=== PATIENT | female | born 1935 | race Caucasian/White ===

== ENCOUNTER 2017-08-25 14:02 | Inpatient (IN) | payer MEDICARE, OTHER ==
[~2017-08-25] VITALS: Ht 154.9 cm; Wt 59.9 kg
--- NOTE | 2017-08-25 14:06 | NUR ---
ASSISTED [facility] WHEELCHAIR TO ED BED 04, A/OX3, BB FAMILY FOR COUGH AND SOB X 3 DAYS. SPEAKS IN FULL SENTENCE. SPO2-97% RA. DENEIS CHEST PAIN. ALL NEEDS ARE ATTENDED, KEPT COMFORTABLE. PENDING ER MD EVALUATION
[2017-08-25] MEDS ORDERED: ASPIRIN 325 MG TABLET PO ONE (14:30)
[2017-08-25] MEDS ORDERED: ASPIRIN 325 MG TABLET ONE (14:31)
[2017-08-25 14:45] LABS: BASOPHILS % (AUTO) 0.6 % (0.0-2.0); EOSINOPHILS # (AUTO) 0.1 /CMM (0.0-0.7); EOSINOPHILS % (AUTO) 1.8 % (0.0-6.0); HEMATOCRIT 33 % (33-45); HEMOGLOBIN 11.5 g/dL (11.5-14.8); LYMPHOCYTES # (AUTO) 1.2 /CMM (0.8-4.8); LYMPHOCYTES % (AUTO) 22.3 % (20.0-44.0); MEAN CORPUSCULAR HEMOGLOBIN 30 PG (26.0-33.0); MEAN CORPUSCULAR HGB CONC 35 g/dl (31.0-36.0); MEAN CORPUSCULAR VOLUME 86 fL (82-100); MONOCYTES # (AUTO) 0.4 /CMM (0.1-1.30); NEUTROPHILS # (AUTO) 3.5 /CMM (1.8-8.9); NEUTROPHILS % (AUTO) 67.3 % (43.0-81.0); PLATELET COUNT (AUTO) 292 /CMM (150-450); RDW COEFFICIENT OF VARIATION 13.7 (11.5-15.0); RED BLOOD CELL COUNT(AUTO) 3.82 MIL/uL (4.0-5.2); WHITE BLOOD COUNT (AUTO) 5.2 K/uL (4.3-11.0)
[2017-08-25 14:56] LABS: CALCIUM, SERUM 9.2 mg/dL (8.5-10.1); CARBON DIOXIDE 28 mmol/L (21-32); CHLORIDE 107 mmol/L (98-107); CREATININE 1.1 mg/dL (0.6-1.3); GLUCOSE 117 mg/dL (74-106); SODIUM SERUM 141 mmol/L (136-145); UREA NITROGEN, BLOOD 28 mg/dL (7-18)
[2017-08-25 14:59] LABS: INR 1.01 (0.87-1.13); PROTHROMBIN TIME 10.5 SECS (9.5-12.7)
[2017-08-25 15:02] LABS: TROPONIN I < 0.017 ng/mL (0.00-0.056)
[2017-08-25 15:07] LABS: ALANINE AMINOTRANSFERASE 20 U/L (12-78); ALBUMIN 3.9 g/dL (3.4-5.0); ALKALINE PHOSPHATASE 32 U/L (46-116); ASPARTATE AMINOTRANSFERASE 24 U/L (15-37); B-TYPE NATRIURETIC PEPTIDE 530 PG/ML (0-125); BILIRUBIN,DIRECT 0.1 mg/dL (0.0-0.2); BILIRUBIN,TOTAL 0.4 mg/dL (0.2-1.0); TOTAL PROTEIN, SERUM 8.5 g/dL (6.4-8.2)
--- NOTE | 2017-08-25 15:43 | NUR ---
PAGED REMELTER DR MARINELLI
[2017-08-25] MEDS ORDERED: MAG HYDROX/AL HYDROX/SIMETH 30 ML UDC PO PRN (16:00)
[2017-08-25] MEDS ORDERED: HYDROCODONE/APAP 5/325MG 1 EACH TABLET PO PRN (16:00)
[2017-08-25] MEDS ORDERED: MAGNESIUM HYDROXIDE 30 ML UDC PO PRN (16:00)
[2017-08-25] MEDS ORDERED: ACETAMINOPHEN 325 MG TABLET PO PRN (16:00)
[2017-08-25] MEDS ORDERED: ZOLPIDEM TARTRATE 5 MG TABLET PO PRN (16:00)
[2017-08-25] MEDS ORDERED: ONDANSETRON HCL/PF 4 MG/2 ML VIAL IVP PRN (16:00)
[2017-08-25] MEDS ORDERED: Z GUARD REMEDY 2 OZ OINT TP PRN (16:00)
[2017-08-25] MEDS ORDERED: ENOXAPARIN SODIUM 40 MG/0.4 ML DISP.SYRIN SQ SCH (16:00)
[2017-08-25] MEDS ORDERED: FUROSEMIDE 40 MG/4 ML VIAL ONE (16:11)
--- NOTE | 2017-08-25 16:21 | NUR ---
GAVE REPORT TO JAY GREENE TELE ROOM [address] MARINELLI CHF DX
[2017-08-25] MEDS ORDERED: FUROSEMIDE 40 MG/4 ML VIAL IV ONE (16:30)
--- NOTE | 2017-08-25 16:30 | NUR ---
RN NOTES RECEIVED REPORT FROM BERNADETTE FROM EMERGENCY DEPT. PT. WILL BE GOING TO ROOM 311 BED 1.
[2017-08-25] MEDS ORDERED: INSU100V7 SQ (16:47)
[2017-08-25] MEDS ORDERED: ESOM40CA PO (16:47)
[2017-08-25] MEDS ORDERED: TICA90TA PO (16:47)
[2017-08-25] MEDS ORDERED: EZET10TA14 PO (16:47)
[2017-08-25] MEDS ORDERED: MONT10TA22 PO (16:47)
[2017-08-25] MEDS ORDERED: ALBU18HF2 INH (16:47)
[2017-08-25] MEDS ORDERED: METO-356 PO (16:47)
[2017-08-25] MEDS ORDERED: POTA8TAB3 PO (16:47)
[2017-08-25] MEDS ORDERED: FURO40TA5 PO (16:47)
[2017-08-25] MEDS ORDERED: AMLO10TA4 PO (16:47)
[2017-08-25] MEDS ORDERED: CELE200C PO (16:47)
[2017-08-25] MEDS ORDERED: ROSU5TAB PO (16:47)
[2017-08-25] MEDS ORDERED: GLIM4TAB2 PO (16:47)
[2017-08-25] MEDS ORDERED: SITA1TAB2 PO (16:47)
[2017-08-25] MEDS ORDERED: FENO145T PO (16:47)
[2017-08-25] MEDS ORDERED: MAGN400T6 PO (16:47)
[2017-08-25] MEDS ORDERED: ALEN70TA45 PO (16:47)
[2017-08-25 17:00] VITALS: BP 148/73
--- NOTE | 2017-08-25 17:00 | NUR ---
BODY DIE MAKER RECEIVED PT. IN BED A&OX4. IN MEDICALLY STABLE CONDITION. PT. IS BREATHING ON OXYGEN AT 2L/MIN VIA NASAL CANNULA. WITHOUT S/S OF RESPIRATORY DISTRESS. NO S/ OF ACUTE DISTRESS. FAMILY IS AT PT.'S BEDSIDE. PER CHARGE NURSE PT.'S DAUGHTER IS OKAY TO SPEND THE NIGHT.
[2017-08-25] MEDS: FUROSEMIDE 20 MG/2 ML VIAL IV SCH (18:18)
--- NOTE | 2017-08-25 19:45 | NUR ---
RN NOTE; RECEIVED PT IN BED AWAKE AND ALERT, W/ FAMILY AT THE BED SIDE. BREATHING EVENLY. NO SOB ON SUPPLEMENTAL O2 VIA NC. W/ INTERMITTENT COUGH. NO S/S OR C/O PAIN OR DISCOMFORT. NEEDS ATTENDED. BED LOW LOCKED. CALL LIGHT WITHIN REACH. WILL CONT TO MONITOR,
--- NOTE | 2017-08-25 19:53 | NUR ---
RN CLOSING NOTES PT. IN BED, A&OX4, SPEAKS IRAQI. PT.'S DAUGHTER IS AT BEDSIDE. BREATHING UNLABORED, AND EVENLY ON OXYGEN AT 2L/MIN VIA NASAL CANNULA. NO S/S OF ACUTE DISTRESS. PT. DENIES CHEST PAIN, AND SOB. IV IS INTACT AND PATENT ON LEFT ANTECUBITAL SITE. HEAD OF BED IS UP, BED IS IN LOWEST, AND LOCKED POSITION. 2 SIDE RAILS UP, AND INSTRUCTED PT. TO USE CALL LIGHT WITHIN REACH FOR ASSISTANCE. ALL NEEDS MET. WILL ENDORSE REPORT TO NURSE.
[2017-08-25 20:00] VITALS: BP_SYST 160; BP_SYST 161; BP_DIAS 80
[2017-08-25] MEDS ORDERED: CEFTRIAXONE 1 G in IV D5W 50 ML IV SCH (20:00)
[2017-08-25] MEDS ORDERED: AZITHROMYCIN 500 MG in IV D5W 250 ML IV SCH (21:00)
--- NOTE | 2017-08-25 23:00 | NUR ---
REQUESTED DR. AYALA ON THE FLOOR TO RECONCILE THE HOME MEDS.
[2017-08-26] VITALS: BP 100/53
[2017-08-26] MEDS ORDERED: DEXTROSE 50%-WATER 50 ML DISP.SYRIN IV PRN (00:30)
[2017-08-26] MEDS ORDERED: INSULIN DETEMIR 100 UNIT/ML CARTRIDGE SQ SCH (00:30)
[2017-08-26] MEDS ORDERED: ALBUTEROL SULFATE 8 GM HFA.AER.AD IH PRN (00:30)
[2017-08-26] MEDS ORDERED: INSULIN REGULAR, HUMAN 100 UNIT/ML 3 ML VIAL SQ PRN (00:30)
[2017-08-26] MEDS ORDERED: INSULIN DETEMIR 100 UNIT/ML CARTRIDGE SQ ONE (00:46)
[2017-08-26 04:00] VITALS: BP 130/59
--- NOTE | 2017-08-26 06:18 | NUR ---
RN NOTE; PT IN BED AWAKE AND ALERT W/ DTR AT THE BED SIDE. BREATHING EVENLY. DENIED SOB. NO C/O PAIN OR DISCOMFORT. NO ACUTE EVENT DURING THE NIGHT. NEEDS ATTENDED . BED LOW LOCKED . CALL LIGHT WITHIN REACH,. WILL CONT TO MONITOR AND WILL ENDORSE TO AM SHIFT FOR ROSALINA. Addendum: 08/26/17 at 0621 by KATHRINE PARKER RN SINUS RHYTHM ON TELE MONITOR,
[2017-08-26 06:51] LABS: BASOPHILS % (AUTO) 0.6 % (0.0-2.0); EOSINOPHILS # (AUTO) 0.1 /CMM (0.0-0.7); HEMATOCRIT 33 % (33-45); HEMOGLOBIN 11.1 g/dL (11.5-14.8); LYMPHOCYTES # (AUTO) 1.5 /CMM (0.8-4.8); LYMPHOCYTES % (AUTO) 29.6 % (20.0-44.0); MEAN CORPUSCULAR HEMOGLOBIN 30 PG (26.0-33.0); MEAN CORPUSCULAR HGB CONC 34 g/dl (31.0-36.0); MEAN CORPUSCULAR VOLUME 89 fL (82-100); MONOCYTES # (AUTO) 0.5 /CMM (0.1-1.30); MONOCYTES % (AUTO) 10.2 % (2.0-12.0); NEUTROPHILS # (AUTO) 2.9 /CMM (1.8-8.9); NEUTROPHILS % (AUTO) 57.6 % (43.0-81.0); PLATELET COUNT (AUTO) 245 /CMM (150-450); RDW COEFFICIENT OF VARIATION 14.7 (11.5-15.0); RED BLOOD CELL COUNT(AUTO) 3.72 MIL/uL (4.0-5.2); WHITE BLOOD COUNT (AUTO) 4.9 K/uL (4.3-11.0)
[2017-08-26] MEDS: BLOOD SUGAR DIAGNOSTIC 1 EACH STRIP IN SCH ×2 (06:54→12:04)
[2017-08-26 07:01] LABS: ALANINE AMINOTRANSFERASE 21 U/L (12-78); ALBUMIN 3.8 g/dL (3.4-5.0); ALKALINE PHOSPHATASE 28 U/L (46-116); ASPARTATE AMINOTRANSFERASE 20 U/L (15-37); BILIRUBIN,TOTAL 0.3 mg/dL (0.2-1.0); CALCIUM, SERUM 9.3 mg/dL (8.5-10.1); CARBON DIOXIDE 30 mmol/L (21-32); CHLORIDE 106 mmol/L (98-107); CREATININE 1.5 mg/dL (0.6-1.3); GLUCOSE 134 mg/dL (74-106); PHOSPHORUS 4.6 mg/dL (2.5-4.9); POTASSIUM 4.3 mmol/L (3.5-5.1); SODIUM SERUM 144 mmol/L (136-145); TOTAL PROTEIN, SERUM 8.3 g/dL (6.4-8.2); UREA NITROGEN, BLOOD 35 mg/dL (7-18)
[2017-08-26 07:35] LABS: CHOLESTEROL 147 mg/dL (<200); HDL CHOLESTEROL 30 mg/dL (40-60); LDL 69 mg/dL (0-99); TRIGLYCERIDES 311 mg/dL (30-150)
[2017-08-26 08:00] VITALS: BP 110/56
--- NOTE | 2017-08-26 08:00 | NUR ---
CREW LEAD NOTES PATIENT IN BED RESTING NO SOB OR ACUTE DISTRESS NOTED. PATIENT ALERT, ORIENTED X3 KOSOVAN SPEAKING. DAUGHTER AT BEDSIDE. PERIPHERAL IV INTACT PATENT. BED IN LOW LOCKED POSITION. CALL LIGHT WITHIN REACH WILL CONTINUE TO MONITOR.
[2017-08-26] MEDS: FUROSEMIDE 20 MG/2 ML VIAL IV SCH (08:56)
[2017-08-26] MEDS ORDERED: FENOFIBRATE NANOCRYS (145 MG) 145 MG TABLET PO SCH (09:00)
[2017-08-26] MEDS ORDERED: GLIMEPIRIDE 4 MG TABLET PO SCH (09:00)
[2017-08-26] MEDS ORDERED: ALBUTEROL FS 2.5 MG/3 ML VIAL.NEB NEB PRN (09:00)
[2017-08-26] MEDS ORDERED: METFORMIN 500 MG TABLET PO SCH (09:00)
[2017-08-26] MEDS ORDERED: METOPROLOL SUCCINATE 25 MG TAB.SR.24H PO SCH (09:00)
[2017-08-26] MEDS ORDERED: LINAGLIPTIN 5 MG TABLET PO SCH (09:00)
--- NOTE | 2017-08-26 10:00 | NUR ---
CLINICAL GENETICIST NOTES PATIENT SEEN AND EVALUATED BY DR. MARINELLI ORDERS NOTED AND CARRIED OUT.
[2017-08-26 12:00] VITALS: BP 95/60
--- NOTE | 2017-08-26 15:00 | NUR ---
WALLCOVERING TEXTURER NOTES CALL PLACED TO DR. MARINELLI STATING PATIENT IS REQUESTING TO BE DISCHARGED. CT RESULTS RELAYED TO DR. MARINELLI. ORDERS RECEIVED TO D/C HOME.
--- NOTE | 2017-08-26 15:50 | NUR ---
ROLLED GLASS CROSSCUTTER NOTES PATIENT DISCHARGED HOME WITH DAUGHTER. DISCHARGE INSTRUCTIONS PROVIDED TO DAUGHTER. DAUGHTER STATES WILL MAKE APPOINTMENT WITH PCP AND CARDIOLOGY ON 08/27/2017. MD AWARE OF ALL ABNORMAL LABS. PATIENT ALERT, ORIENTED X3. ALL BELONGINGS ACCOUNTED FOR, BELONGING LIST SIGNED. PRESCRIPTION PROVIDED TO DAUGHTER. VERBALIZED UNDERSTANDING. PATIENT ESCORTED TO CAR .
[2017-08-26] MEDS ORDERED: TICAGRELOR 90 MG TABLET PO SCH (17:00)
[2017-08-26] MEDS ORDERED: EZETIMIBE 10 MG TABLET PO SCH (22:00)
[2017-08-26] MEDS ORDERED: ATORVASTATIN 10 MG TABLET PO SCH (22:00)
[2017-08-26] MEDS ORDERED: MONTELUKAST SODIUM (10MG) 10 MG TABLET PO SCH (22:00)
== END 2017-08-26 15:50 | disposition home or self-care (01) | DRG 291 ==
LOC: ER 14:03 → TELE 16:55
PROVIDERS: ADMIT Internal Medicine; ATTEND Internal Medicine
DX: I11.0 Hypertensive heart disease with heart failure (principal); J96.01 Acute respiratory failure with hypoxia; J18.9 Pneumonia, unspecified organism; N17.9 Acute kidney failure, unspecified; E11.9 Type 2 diabetes mellitus without complications; I48.91 Unspecified atrial fibrillation; I50.33 Acute on chronic diastolic (congestive) heart failure; J45.909 Unspecified asthma, uncomplicated; Z95.5 Presence of coronary angioplasty implant and graft; I25.10 Atherosclerotic heart disease of native coronary artery without angina pectoris; Z79.899 Other long term (current) drug therapy; Z79.84 Long term (current) use of oral hypoglycemic drugs; E78.5 Hyperlipidemia, unspecified; Z88.1 Allergy status to other antibiotic agents; Z79.4 Long term (current) use of insulin; R91.1 Solitary pulmonary nodule
CPT/HCPCS: 36415; 71010-TC; 71250-TC; 80048-TC; 80053-TC; 80061-TC; 80076-TC; 82962-TC; 83735-TC; 83880; 84100-TC; 84484-TC; 85025-TC; 85730-TC; 87081-TC; A4606; J0456; J0696; J1650; J1815; J1940; J7050; J7060; Z7610

== ENCOUNTER 2018-01-21 11:55 | Inpatient (IN) | payer MEDICARE, OTHER ==
[~2018-01-21] VITALS: Ht 162.6 cm; Wt 61.2 kg
[~2018-01-21 11:55] MED LIST: ALBU18HF2 INH; ALEN70TA45 PO; AMLO10TA4 PO; CELE200C PO; ESOM40CA PO; EZET10TA14 PO; FENO145T PO; FURO40TA5 PO; GLIM4TAB2 PO; INSU100V7 SQ; MAGN400T6 PO; METO-356 PO; MONT10TA22 PO; POTA8TAB3 PO; ROSU5TAB PO; SITA1TAB2 PO; TICA90TA PO
[2018-01-21 12:25] LABS: BASOPHILS % (AUTO) 0.5 % (0.0-2.0); EOSINOPHILS % (AUTO) 0.6 % (0.0-6.0); HEMATOCRIT 28 % (33-45); HEMOGLOBIN 9.3 g/dL (11.5-14.8); LYMPHOCYTES # (AUTO) 0.8 /CMM (0.8-4.8); LYMPHOCYTES % (AUTO) 11.7 % (20.0-44.0); MEAN CORPUSCULAR HGB CONC 34 g/dl (31.0-36.0); MEAN CORPUSCULAR VOLUME 86 fL (82-100); MONOCYTES # (AUTO) 0.4 /CMM (0.1-1.30); MONOCYTES % (AUTO) 6.5 % (2.0-12.0); NEUTROPHILS # (AUTO) 5.7 /CMM (1.8-8.9); NEUTROPHILS % (AUTO) 80.7 % (43.0-81.0); PLATELET COUNT (AUTO) 208 /CMM (150-450); RDW COEFFICIENT OF VARIATION 16.6 (11.5-15.0); RED BLOOD CELL COUNT(AUTO) 3.21 MIL/uL (4.0-5.2); WHITE BLOOD COUNT (AUTO) 6.9 K/uL (4.3-11.0)
[2018-01-21 12:35] LABS: CALCIUM, SERUM 8.8 mg/dL (8.5-10.1); CARBON DIOXIDE 28 mmol/L (21-32); CHLORIDE 105 mmol/L (98-107); GLUCOSE 132 mg/dL (74-106); POTASSIUM 5.1 mmol/L (3.5-5.1); SODIUM SERUM 138 mmol/L (136-145); UREA NITROGEN, BLOOD 22 mg/dL (7-18)
[2018-01-21 12:39] LABS: INR 1.12 (0.85-1.15)
[2018-01-21 12:43] LABS: TROPONIN I < 0.017 ng/mL (0.00-0.056)
[2018-01-21 12:47] LABS: ALANINE AMINOTRANSFERASE 16 U/L (12-78); ALBUMIN 3.3 g/dL (3.4-5.0); ALKALINE PHOSPHATASE 32 U/L (46-116); ASPARTATE AMINOTRANSFERASE 13 U/L (15-37); B-TYPE NATRIURETIC PEPTIDE 3000 PG/ML (0-125); BILIRUBIN,DIRECT 0.2 mg/dL (0.0-0.2); BILIRUBIN,TOTAL 0.7 mg/dL (0.2-1.0); TOTAL PROTEIN, SERUM 7.9 g/dL (6.4-8.2)
[2018-01-21] MEDS ORDERED: FUROSEMIDE 40 MG/4 ML VIAL IV ONE (13:00)
--- NOTE | 2018-01-21 13:00 | NUR ---
PT MEDICATED ORDERED.
[2018-01-21] MEDS ORDERED: FUROSEMIDE 40 MG/4 ML VIAL ONE (13:03)
--- NOTE | 2018-01-21 13:11 | NUR ---
CALLED [employer] PRODUCTION MINER WAS PAGED.
--- NOTE | 2018-01-21 13:39 | NUR ---
REPORT GIVEN TO SHYLA GREENE FOR AGUSTIN 117.
[2018-01-21] MEDS ORDERED: DILT60CA2 PO (14:17)
[2018-01-21] MEDS ORDERED: CARV6.252 PO (14:17)
[2018-01-21] MEDS ORDERED: INSU100I24 SQ (14:17)
[2018-01-21] MEDS ORDERED: ASPI-1152 PO (14:17)
[2018-01-21] MEDS ORDERED: TEMA15CA5 PO (14:17)
[2018-01-21] MEDS ORDERED: FERR325T23 PO (14:17)
[2018-01-21] MEDS ORDERED: APIX2.5T PO (14:17)
[2018-01-21] MEDS ORDERED: HYDROCODONE/APAP 5/325MG 1 EACH TABLET PO PRN (15:00)
[2018-01-21] MEDS ORDERED: ACETAMINOPHEN 325 MG TABLET PO PRN (15:00)
[2018-01-21] MEDS ORDERED: ALBUTEROL SULFATE 8 GM HFA.AER.AD IH PRN (15:00)
[2018-01-21] MEDS ORDERED: MAG HYDROX/AL HYDROX/SIMETH 30 ML UDC PO PRN (15:00)
[2018-01-21] MEDS ORDERED: ZOLPIDEM TARTRATE 5 MG TABLET PO PRN (15:00)
[2018-01-21] MEDS ORDERED: ONDANSETRON HCL/PF 4 MG/2 ML VIAL IVP PRN (15:00)
[2018-01-21] MEDS ORDERED: MORPHINE SULFATE INJ 2 MG/ML DISP.SYRIN IV PRN (15:00)
[2018-01-21] MEDS ORDERED: ENOXAPARIN SODIUM 40 MG/0.4 ML DISP.SYRIN SQ SCH (15:00)
[2018-01-21] MEDS ORDERED: Z GUARD REMEDY 2 OZ OINT TP PRN (15:00)
[2018-01-21 15:39] VITALS: BP 144/65
--- NOTE | 2018-01-21 15:53 | NUR ---
AGUSTIN RN NOTE ON TELE MONITOR AFIB [address] LI STATED OK TO GIVE CARDIZEM 10 MG IVP TIME AND GIVE ADDITION 60 MG PO IF HR STILL ABOVE 120 IN 30 MIN, ORDER CARRIED OUT
--- NOTE | 2018-01-21 15:56 | NUR ---
AGUSTIN RN NOTE RECEIVED PATIENT FROM ER ,ALERT ORIENTED X3 ,YI SPEAKING, PLACED ON TELE AFIB [address] NAGY WITH DX CHF AND AFIB WITH RVR ,FAMILY AT BEDSIDE ,ALL NEEDS ATTENDED, ECHO DOING NOW , VS TAKEN , HOSPITAL ORIENTATION DONE , WILL CONT TO MONITOR CLOSELY STILL SON , ON 3L NC SAT 97%
[2018-01-21] MEDS ORDERED: DILTIAZEM HCL 50 MG IV IV STA (15:59)
[2018-01-21 16:00] VITALS: BP 151/55
[2018-01-21] MEDS ORDERED: DILTIAZEM HCL 30 MG TABLET PO ONE (16:00)
--- NOTE | 2018-01-21 16:00 | NUR ---
AGUSTIN RN NOTE RECEIVED CALL FROM PHARMACY STATED ITS SHORTAGE OF CARDIZEM , STATED THAT WILL CALL TO DR VÁSQUEZ TO CHANGE ORDER WILL AWAIT FOR FURTHER ORDERS
--- NOTE | 2018-01-21 16:25 | NUR ---
AGUSTIN RN NOTE CARDIZEM 60 MG PO GIVEN ORDERED WILL CONT TO MONITOR CLOSELY
[2018-01-21] MEDS: FERROUS SULFATE (325 MG) 325 MG/TAB TABLET PO SCH (17:21)
[2018-01-21] MEDS: CARVEDILOL 6.25 MG TABLET PO SCH (17:23)
[2018-01-21] MEDS: APIXABAN 2.5 MG TABLET PO SCH (17:47)
[2018-01-21] MEDS ORDERED: DIGOXIN INJ 0.5 MG/2 ML AMPUL IV ONE (18:00)
[2018-01-21] MEDS ORDERED: METOPROLOL TARTRATE INJ 5 MG/5 ML AMPUL IVP PRN (18:00)
--- NOTE | 2018-01-21 18:00 | NUR ---
AGUSTIN RN NOTE NOTIFY TO DR NAGY THAT HR AFIB 120 STILL SOB ORDERED DIGOXIN I V , ORDER CARRIED OUT
--- NOTE | 2018-01-21 18:00 | NUR ---
AGUSTIN RN NOTE CALLED AGAIN TO DR NAGY NOTIFIED THAT PATIENT STILL SOB AND HR 138 A FIB AFTER CARDIZEM 60 MG PO AND COREG 6.25 PO AWARE THAT CARDIZEM IV 10 MG WAS D\C BY PHARMACIST DUE TO SHORTAGE
[2018-01-21] MEDS ORDERED: DEXTROSE 50%-WATER 50 ML DISP.SYRIN IV PRN (18:30)
[2018-01-21] MEDS: BLOOD SUGAR DIAGNOSTIC 1 EACH STRIP VI SCH ×2 (18:42→21:21)
--- NOTE | 2018-01-21 18:45 | NUR ---
AGUSTIN GREENE NOTE DIG IV 0.25 MG IVP GIVEN ORDERED BP 95/45 HR 112M,WILL CONT TO MONITOR CLOSELY Addendum: 01/21/18 at 1850 by SHYLA CHATTERJEE RN PER RT INCREASED O2 UP TO 6L NC DUE TO PATIENT HAVE SOB
[2018-01-21] MEDS ORDERED: ALBUTEROL FS 2.5 MG/0.5 ML VIAL.NEB NEB PRN (19:30)
--- NOTE | 2018-01-21 19:30 | NUR ---
AGUSTIN/RN NOTES: RECEIVED PT. IN BED W/ HOB ELEVATED W/ O2 @ 5 LPM VIA N/C SAT 99%. PT. IS PALESTINIAN SPEAKING ONLY. PT. A/O X 3. ON TELE MONITOR W/ AFIB 116. CONTINENT OF B/B. USES BSC. LAC G 20 PATENT AND INTACT W/ NO S/S OF INFECTION/INFILTRATION NOTED. W/ FAMILY MEMBERS AT BEDSIDE TO TRANSLATE. CALL LIGHT W/ REACH. WILL CONTINUE TO MONITOR.
[2018-01-21 20:00] VITALS: BP 116/55
[2018-01-21] MEDS: DILTIAZEM SR 60 MG PO SCH (21:00)
[2018-01-21] MEDS: INSULIN REGULAR, HUMAN 100 UNIT/ML 3 ML VIAL SQ PRN (21:24)
[2018-01-21] MEDS: TEMAZEPAM 15 MG CAPSULE PO SCH (21:27)
[2018-01-22] VITALS (8 sets, daily range): BP systolic 97–110; BP diastolic 46–62
[2018-01-22] MEDS: ALBUTEROL FS 2.5 MG/0.5 ML VIAL.NEB NEB SCH ×4 (01:06→19:46)
[2018-01-22] MEDS: DILTIAZEM SR 60 MG PO SCH (05:00)
[2018-01-22 06:31] LABS: BASOPHILS % (AUTO) 0.5 % (0.0-2.0); EOSINOPHILS % (AUTO) 0.3 % (0.0-6.0); HEMATOCRIT 26 % (33-45); HEMOGLOBIN 8.6 g/dL (11.5-14.8); LYMPHOCYTES # (AUTO) 1.1 /CMM (0.8-4.8); LYMPHOCYTES % (AUTO) 19.5 % (20.0-44.0); MEAN CORPUSCULAR HGB CONC 33 g/dl (31.0-36.0); MEAN CORPUSCULAR VOLUME 86 fL (82-100); MONOCYTES # (AUTO) 0.4 /CMM (0.1-1.30); MONOCYTES % (AUTO) 7.4 % (2.0-12.0); NEUTROPHILS # (AUTO) 4.1 /CMM (1.8-8.9); NEUTROPHILS % (AUTO) 72.3 % (43.0-81.0); PLATELET COUNT (AUTO) 170 /CMM (150-450); RDW COEFFICIENT OF VARIATION 17.6 (11.5-15.0); RED BLOOD CELL COUNT(AUTO) 3.01 MIL/uL (4.0-5.2); WHITE BLOOD COUNT (AUTO) 5.6 K/uL (4.3-11.0)
[2018-01-22 06:39] LABS: CALCIUM, SERUM 8.8 mg/dL (8.5-10.1); CARBON DIOXIDE 30 mmol/L (21-32); CHLORIDE 106 mmol/L (98-107); GLUCOSE 58 mg/dL (74-106); MAGNESIUM 2.2 mg/dL (1.8-2.4); PHOSPHORUS 5.2 mg/dL (2.5-4.9); POTASSIUM 4.6 mmol/L (3.5-5.1); SODIUM SERUM 142 mmol/L (136-145); UREA NITROGEN, BLOOD 23 mg/dL (7-18)
[2018-01-22 06:57] LABS: CHOLESTEROL 93 mg/dL (<200); HDL CHOLESTEROL 37 mg/dL (40-60); LDL 46 mg/dL (0-99); TRIGLYCERIDES 84 mg/dL (30-150)
--- NOTE | 2018-01-22 07:13 | NUR ---
AGUSTIN/RN NOTES: NO ACUTE CHANGES NOTED DURING THIS SHIFT. REPORT GIVEN TO AM NURSE FOR ROSALINA.
[2018-01-22] MEDS: BLOOD SUGAR DIAGNOSTIC 1 EACH STRIP VI SCH ×4 (07:39→21:42)
[2018-01-22] MEDS: FUROSEMIDE 40 MG/4 ML VIAL IV SCH (08:21)
[2018-01-22] MEDS: ASPIRIN EC 81 MG TABLET.DR PO SCH (08:21)
[2018-01-22] MEDS: MONTELUKAST SODIUM (10MG) 10 MG TABLET PO SCH (08:21)
[2018-01-22] MEDS: APIXABAN 2.5 MG TABLET PO SCH ×2 (08:21→17:40)
[2018-01-22] MEDS: FERROUS SULFATE (325 MG) 325 MG/TAB TABLET PO SCH ×2 (08:21→17:39)
[2018-01-22] MEDS: EZETIMIBE 10 MG TABLET PO SCH (08:21)
[2018-01-22] MEDS: CARVEDILOL 6.25 MG TABLET PO SCH ×2 (08:23→17:40)
[2018-01-22] MEDS: INSULIN REGULAR, HUMAN 100 UNIT/ML 3 ML VIAL SQ PRN ×2 (08:25→17:39)
[2018-01-22] MEDS ORDERED: AMLODIPINE BESYLATE 10 MG TABLET PO SCH (09:00)
[2018-01-22 09:54] LABS: IRON, SERUM 22 ug/dl (50-175); TOTAL IRON BINDING CAPACITY 230 ug/dl (250-450)
[2018-01-22 10:10] LABS: FERRITIN 194 ng/mL (8-388); THYROID STIMULATING HORMONE 1.441 uIU/mL (0.358-3.74)
[2018-01-22 10:28] LABS: TROPONIN I < 0.017 ng/mL (0.00-0.056)
[2018-01-22] MEDS: MAGNESIUM HYDROXIDE 30 ML UDC PO PRN (11:44)
[2018-01-22] MEDS: DIGOXIN INJ 0.5 MG/2 ML AMPUL IV SCH ×2 (11:51→17:40)
[2018-01-22] MEDS: SOD FERRIC GLUC 125 MG in IV NS 0.9% 100 ML IV SCH (15:32)
--- NOTE | 2018-01-22 19:30 | NUR ---
TELE/RN NOTES: RECEIVED PT. IN BED W/ HOB ELEVATED W/ O2 @ 5 LPM VIA N/C SAT 99%. PT. IS SPANISH SPEAKING ONLY. PT. A/O X 3. ON TELE MONITOR W/ AFIB 116. CONTINENT OF B/B. USES BSC. LAC G 20 PATENT AND INTACT W/ NO S/S OF INFECTION/INFILTRATION NOTED. W/ FAMILY MEMBERS AT BEDSIDE TO TRANSLATE. CALL LIGHT W/ REACH. WILL CONTINUE TO MONITOR
[2018-01-22] MEDS: TEMAZEPAM 15 MG CAPSULE PO SCH (21:42)
[2018-01-23] VITALS: BP_SYST 97; BP_DIAS 41; BP_DIAS 51
[2018-01-23] MEDS: DIGOXIN INJ 0.5 MG/2 ML AMPUL IV SCH (00:25)
[2018-01-23] MEDS: ALBUTEROL FS 2.5 MG/0.5 ML VIAL.NEB NEB SCH ×4 (02:24→20:08)
[2018-01-23 04:00] VITALS: BP 125/44
[2018-01-23 06:10] LABS: BASOPHILS % (AUTO) 0.7 % (0.0-2.0); EOSINOPHILS % (AUTO) 1.1 % (0.0-6.0); HEMATOCRIT 26 % (33-45); HEMOGLOBIN 8.5 g/dL (11.5-14.8); LYMPHOCYTES # (AUTO) 1.2 /CMM (0.8-4.8); LYMPHOCYTES % (AUTO) 24.4 % (20.0-44.0); MEAN CORPUSCULAR HGB CONC 33 g/dl (31.0-36.0); MEAN CORPUSCULAR VOLUME 86 fL (82-100); MONOCYTES # (AUTO) 0.4 /CMM (0.1-1.30); MONOCYTES % (AUTO) 7.7 % (2.0-12.0); NEUTROPHILS # (AUTO) 3.2 /CMM (1.8-8.9); NEUTROPHILS % (AUTO) 66.1 % (43.0-81.0); PLATELET COUNT (AUTO) 161 /CMM (150-450); RDW COEFFICIENT OF VARIATION 17.5 (11.5-15.0); RED BLOOD CELL COUNT(AUTO) 2.97 MIL/uL (4.0-5.2); WHITE BLOOD COUNT (AUTO) 4.8 K/uL (4.3-11.0)
[2018-01-23 06:49] LABS: TROPONIN I < 0.017 ng/mL (0.00-0.056)
[2018-01-23 06:52] LABS: ALANINE AMINOTRANSFERASE 20 U/L (12-78); ALBUMIN 2.8 g/dL (3.4-5.0); ALKALINE PHOSPHATASE 33 U/L (46-116); ASPARTATE AMINOTRANSFERASE 11 U/L (15-37); BILIRUBIN,TOTAL 0.5 mg/dL (0.2-1.0); CALCIUM, SERUM 8.7 mg/dL (8.5-10.1); CARBON DIOXIDE 30 mmol/L (21-32); CHLORIDE 106 mmol/L (98-107); CREATININE 0.9 mg/dL (0.6-1.3); GLUCOSE 81 mg/dL (74-106); MAGNESIUM 2.2 mg/dL (1.8-2.4); PHOSPHORUS 4.2 mg/dL (2.5-4.9); POTASSIUM 4.6 mmol/L (3.5-5.1); SODIUM SERUM 142 mmol/L (136-145); TOTAL PROTEIN, SERUM 6.9 g/dL (6.4-8.2); UREA NITROGEN, BLOOD 20 mg/dL (7-18)
--- NOTE | 2018-01-23 07:26 | NUR ---
TELE/RN NOTES: NO ACUTE CHANGES NOTED DURING THIS SHIFT. REPORT GIVEN TO AM NURSE FOR ROSALINA.
[2018-01-23 08:00] VITALS: BP 106/58
[2018-01-23] MEDS: BLOOD SUGAR DIAGNOSTIC 1 EACH STRIP VI SCH ×4 (08:01→22:44)
[2018-01-23] MEDS: MONTELUKAST SODIUM (10MG) 10 MG TABLET PO SCH (08:04)
[2018-01-23] MEDS: EZETIMIBE 10 MG TABLET PO SCH (08:04)
[2018-01-23] MEDS: APIXABAN 2.5 MG TABLET PO SCH ×2 (08:04→17:20)
[2018-01-23] MEDS: ASPIRIN EC 81 MG TABLET.DR PO SCH (08:04)
[2018-01-23] MEDS: FERROUS SULFATE (325 MG) 325 MG/TAB TABLET PO SCH ×2 (08:04→17:20)
[2018-01-23] MEDS: FUROSEMIDE 40 MG/4 ML VIAL IV SCH ×3 (08:05→17:00)
[2018-01-23] MEDS ORDERED: PIPERACILLIN /TAZOBACTAM 3.375 G in IV D5W 100 ML IV SCH (08:30)
--- NOTE | 2018-01-23 09:00 | NUR ---
RN NOTE LASIX 40 MG IV FREQUENCY ADJUSTED, MORNING DOSE 40 MG GIVEN TO PT PRIOR ADJUSTMENT, THUS NEW DOSE WAS HELD NOT TO DOUBLE DOSE, AND WILL ADMINISTER NEXT SCHEDULE DOSE.
[2018-01-23 09:08] LABS: ABG BASE EXCESS 4.2 mmol/L; ABG OXYGEN SATURATION 96.1 % (92.0-98.5); ABG PCO2 49.5 mmHg (35.0-45.0); ABG PH 7.397 (7.350-7.450); ABG PO2 92.8 mmHg (75.0-100.0); AaDO2 135.5 mmHg; COHb 0.3 % (0.5-1.5); MetHb 0.8 % (0.0-1.5); SITE, ABG Right Radial; VENT MODE, BG Nasal Cannula
[2018-01-23] MEDS: PIPERACILLIN /TAZOBACTAM 2.25 G in IV D5W 50 ML IV SCH ×2 (09:56→17:21)
[2018-01-23] MEDS: CARVEDILOL 6.25 MG TABLET PO SCH ×2 (09:59→17:00)
[2018-01-23 12:00] VITALS: BP 117/46
[2018-01-23 14:31] LABS: APPEARANCE,URINE SL CLOUDY (CLEAR); BILIRUBIN,URINE NEGATIVE (NEGATIVE); BLOOD, URINE NEGATIVE Ery/uL (NEGATIVE); COLOR,URINE YELLOW (YELLOW); KETONES,URINE NEGATIVE (NEGATIVE); LEUKOCYTE ESTERASE ,URINE NEGATIVE (NEGATIVE); NITRITE, URINE NEGATIVE (NEGATIVE); PROTEIN,URINE NEGATIVE (NEGATIVE); UGLUCOSE NEGATIVE (NEGATIVE); UROBILINOGEN,URINE 0.2 EU/dL (0.2)
[2018-01-23] MEDS: SOD FERRIC GLUC 125 MG in IV NS 0.9% 100 ML IV SCH (14:37)
[2018-01-23 16:00] VITALS: BP 96/52
[2018-01-23] MEDS: INSULIN REGULAR, HUMAN 100 UNIT/ML 3 ML VIAL SQ PRN (17:41)
[2018-01-23 20:00] VITALS: BP_SYST 144; BP_SYST 98; BP_DIAS 40; BP_DIAS 66
--- NOTE | 2018-01-23 20:00 | NUR ---
RN MS INITIAL NOTES: RECEIVED PT. IN BED W/ HOB ELEVATED W/ O2 @ 5 LPM VIA N/C SAT 99%. PT. IS LAO SPEAKING ONLY. PT. A/O X 3. CONTINENT OF B/B. USES BSC. LAC G 20 PATENT AND INTACT W/ NO S/S OF INFECTION/INFILTRATION NOTED. W/ FAMILY MEMBERS AT BEDSIDE TO TRANSLATE. CALL LIGHT W/ REACH. WILL CONTINUE TO MONITOR
[2018-01-23] MEDS: TEMAZEPAM 15 MG CAPSULE PO SCH (21:45)
[2018-01-24] VITALS: BP 101/50
[2018-01-24] MEDS: PIPERACILLIN /TAZOBACTAM 2.25 G in IV D5W 50 ML IV SCH ×5 (00:26→23:21)
[2018-01-24] MEDS: ALBUTEROL FS 2.5 MG/0.5 ML VIAL.NEB NEB SCH ×2 (01:48→07:35)
[2018-01-24 04:00] VITALS: BP 108/58
[2018-01-24 06:02] LABS: BASOPHILS % (AUTO) 0.7 % (0.0-2.0); EOSINOPHILS % (AUTO) 1.5 % (0.0-6.0); HEMATOCRIT 26 % (33-45); HEMOGLOBIN 8.6 g/dL (11.5-14.8); LYMPHOCYTES % (AUTO) 24.3 % (20.0-44.0); MEAN CORPUSCULAR HGB CONC 33 g/dl (31.0-36.0); MEAN CORPUSCULAR VOLUME 85 fL (82-100); MONOCYTES # (AUTO) 0.3 /CMM (0.1-1.30); MONOCYTES % (AUTO) 8.5 % (2.0-12.0); NEUTROPHILS # (AUTO) 2.7 /CMM (1.8-8.9); PLATELET COUNT (AUTO) 180 /CMM (150-450); RDW COEFFICIENT OF VARIATION 16.8 (11.5-15.0); RED BLOOD CELL COUNT(AUTO) 3.02 MIL/uL (4.0-5.2); WHITE BLOOD COUNT (AUTO) 4.1 K/uL (4.3-11.0)
--- NOTE | 2018-01-24 06:05 | NUR ---
RN MS CLOSING NOTES: ENDORSED PT. IN BED W/ HOB ELEVATED W/ O2 @ 5 LPM VIA N/C SAT 99%. PT. IS DANISH SPEAKING ONLY. PT. A/O X 3. CONTINENT OF B/B. USES BSC. LAC G 20 PATENT AND INTACT W/ NO S/S OF INFECTION/INFILTRATION NOTED. W/ FAMILY MEMBERS AT BEDSIDE TO TRANSLATE. CALL LIGHT W/ REACH. WILL CONTINUE TO MONITOR
[2018-01-24 06:19] LABS: CALCIUM, SERUM 9.2 mg/dL (8.5-10.1); CARBON DIOXIDE 35 mmol/L (21-32); CHLORIDE 104 mmol/L (98-107); CREATININE 1.1 mg/dL (0.6-1.3); GLUCOSE 95 mg/dL (74-106); MAGNESIUM 2.2 mg/dL (1.8-2.4); PHOSPHORUS 4.4 mg/dL (2.5-4.9); POTASSIUM 4.9 mmol/L (3.5-5.1); SODIUM SERUM 142 mmol/L (136-145); UREA NITROGEN, BLOOD 16 mg/dL (7-18)
--- NOTE | 2018-01-24 07:30 | NUR ---
INDEPENDENT PRODUCER INITIAL NOTES RECEIVED PATIENT IN BED, AOX3, ON NC 5L SATURATING 98% O2, BRITISH SPEAKING, FAMILY MEMBER AT BEDSIDE AIDING IN TRANSLATION, ABLE TO AMBULATE WITH WALKER, IV R FA 20G, CLEAN AND PATENT, BED IN LOW AND LOCKED POSITION, CALL LIGHT WITHIN REACH, WILL CONTINUE TO MONITOR.
[2018-01-24 08:00] VITALS: BP 104/47
[2018-01-24] MEDS: BLOOD SUGAR DIAGNOSTIC 1 EACH STRIP VI SCH ×4 (08:02→22:52)
[2018-01-24] MEDS: EZETIMIBE 10 MG TABLET PO SCH (08:55)
[2018-01-24] MEDS: CARVEDILOL 6.25 MG TABLET PO SCH ×2 (08:56→17:00)
[2018-01-24] MEDS: APIXABAN 2.5 MG TABLET PO SCH ×2 (08:56→17:20)
[2018-01-24] MEDS: MONTELUKAST SODIUM (10MG) 10 MG TABLET PO SCH (08:56)
--- NOTE | 2018-01-24 09:00 | NUR ---
PALLIATIVE NURSE NOTES PATIENT BP 104/47, OK TO GIVE BP MEDICATION PER DR ESTEBAN.
[2018-01-24] MEDS: MAGNESIUM HYDROXIDE 30 ML UDC PO PRN (10:20)
[2018-01-24] MEDS: INSULIN REGULAR, HUMAN 100 UNIT/ML 3 ML VIAL SQ PRN ×2 (11:45→17:43)
[2018-01-24 12:00] VITALS: BP 112/57
[2018-01-24] MEDS ORDERED: methylPREDNISolone SOD SUCC 125 MG/2ML VIAL IV ONE (13:00)
[2018-01-24] MEDS: ALBUTEROL HALF STRENGTH 1.25 MG/3 ML VIAL.NEB NEB SCH ×2 (14:14→20:05)
[2018-01-24] MEDS: ACETYLCYSTEINE 10% SOLN 400 MG/4 ML VIAL NEB SCH ×2 (14:14→15:30)
[2018-01-24] MEDS: SOD FERRIC GLUC 125 MG in IV NS 0.9% 100 ML IV SCH (14:58)
[2018-01-24 16:00] VITALS: BP 97/44
--- NOTE | 2018-01-24 18:28 | NUR ---
BLANKET MAKER END NOTES PATIENT RESTING IN BED, NO SIGNS OF DISTRESS, FAMILY AT BEDSIDE, ALL NEEDS ATTENDED TO, WILL ENDORSE TO BUSINESS ETHICS PROFESSOR FOR CONTINUITY OF CARE.
[2018-01-24 20:00] VITALS: BP 116/64
[2018-01-24] MEDS: *INSULIN REGULAR(HUMULIN R)HUM 100 UNIT/ML VIAL SQ PRN (22:58)
[2018-01-25] VITALS: BP 116/64
[2018-01-25] MEDS: ACETYLCYSTEINE 10% SOLN 400 MG/4 ML VIAL NEB SCH ×3 (00:34→14:41)
[2018-01-25] MEDS: ALBUTEROL HALF STRENGTH 1.25 MG/3 ML VIAL.NEB NEB SCH ×4 (00:35→20:12)
[2018-01-25] MEDS: PIPERACILLIN /TAZOBACTAM 2.25 G in IV D5W 50 ML IV SCH ×4 (05:33→23:00)
[2018-01-25 06:46] LABS: BASOPHILS % (AUTO) 0.1 % (0.0-2.0); HEMATOCRIT 26 % (33-45); HEMOGLOBIN 8.5 g/dL (11.5-14.8); LYMPHOCYTES # (AUTO) 0.6 /CMM (0.8-4.8); LYMPHOCYTES % (AUTO) 13.1 % (20.0-44.0); MEAN CORPUSCULAR HGB CONC 33 g/dl (31.0-36.0); MEAN CORPUSCULAR VOLUME 86 fL (82-100); MONOCYTES # (AUTO) 0.3 /CMM (0.1-1.30); MONOCYTES % (AUTO) 6.4 % (2.0-12.0); NEUTROPHILS # (AUTO) 3.9 /CMM (1.8-8.9); NEUTROPHILS % (AUTO) 80.4 % (43.0-81.0); PLATELET COUNT (AUTO) 169 /CMM (150-450); RDW COEFFICIENT OF VARIATION 17.7 (11.5-15.0); RED BLOOD CELL COUNT(AUTO) 2.99 MIL/uL (4.0-5.2); WHITE BLOOD COUNT (AUTO) 4.9 K/uL (4.3-11.0)
[2018-01-25 07:10] LABS: CALCIUM, SERUM 9.3 mg/dL (8.5-10.1); CARBON DIOXIDE 34 mmol/L (21-32); CHLORIDE 104 mmol/L (98-107); CREATININE 1.1 mg/dL (0.6-1.3); GLUCOSE 165 mg/dL (74-106); MAGNESIUM 2.5 mg/dL (1.8-2.4); PHOSPHORUS 3.5 mg/dL (2.5-4.9); POTASSIUM 5.7 mmol/L (3.5-5.1); SODIUM SERUM 142 mmol/L (136-145); UREA NITROGEN, BLOOD 20 mg/dL (7-18)
[2018-01-25] MEDS: BLOOD SUGAR DIAGNOSTIC 1 EACH STRIP VI SCH ×4 (07:48→21:22)
[2018-01-25] MEDS: *INSULIN REGULAR(HUMULIN R)HUM 100 UNIT/ML VIAL SQ PRN ×2 (07:52→21:24)
--- NOTE | 2018-01-25 07:53 | NUR ---
RN NOTES RECEIVED PT FROM RAILROAD CONDUCTOR A&0X3, PRIMARILY GAMBIAN SPEAKING. ON 3L NC SATING WELL NO SOB OR DISTRESS NOTED. RFA 20G IV SITE INTACT. FAMILY AT BEDSIDE. BED LOCKED AND IN LOWEST POSITION, CALL LIGHT WITHIN REACH, SIDE RAILS UPX3,WILL CONT TO MON.
[2018-01-25 08:00] VITALS: BP 102/60
[2018-01-25] MEDS: EZETIMIBE 10 MG TABLET PO SCH (08:11)
[2018-01-25] MEDS: APIXABAN 2.5 MG TABLET PO SCH ×2 (08:11→16:19)
[2018-01-25] MEDS: MONTELUKAST SODIUM (10MG) 10 MG TABLET PO SCH (08:12)
[2018-01-25] MEDS: CARVEDILOL 6.25 MG TABLET PO SCH ×3 (08:12→16:19)
[2018-01-25] MEDS: INSULIN REGULAR, HUMAN 100 UNIT/ML 3 ML VIAL SQ PRN (11:56)
[2018-01-25] MEDS: SOD FERRIC GLUC 125 MG in IV NS 0.9% 100 ML IV SCH (14:22)
[2018-01-25 16:00] VITALS: BP 105/41
[2018-01-25] MEDS ORDERED: INSULIN GLARGINE, 100 UNIT/ML CARTRIDGE SQ ONE (16:00)
[2018-01-25] MEDS: predniSONE 20 MG TABLET PO SCH (16:19)
--- NOTE | 2018-01-25 18:42 | NUR ---
RN NOTES PT REMAINED IN STABLE CONDITION, ALL NEEDS MET, NO SIGNIFICANT CHANGES NOTED. PT RESTING IN BED WITH FAMILY AT BEDSIDE. WILL ENDORSE TO ONCOMING SHIFT.
--- NOTE | 2018-01-25 19:47 | NUR ---
RN INITIAL NOTES: RECEIVED REPORT FROM DAY RN, PT IN BED, AWAKE, A/O X3 ON 3L VIA NC RESPIRATION EVEN AND UNLABORED, DAUGHTER AT BED SIDE, PT IS SWEDISH SPEAKING ONLY, DAUGHTER HELPED WITH TRANSLATION. IV ACCESS PATENT AND FLUSHING WELL, ON HL. PT USES WALKER TO AMBULATE AND ALSO CAN AMBULATE WITH ASSISTANCE. SAFETY PRECAUTIONS FOR FALL INITIATED, CALL LIGHT IN REACH. WILL CONTINUE TO MONITOR PT.
[2018-01-25 20:00] VITALS: BP 108/40
--- NOTE | 2018-01-25 21:24 | NUR ---
BS 241: BS 241, 4UNITS OF INSULIN GIVEN PER SLIDING SCALE, PT TOLERATING PO INTAKE WELL, DAUGHTER AT BED SIDE TO TRANSLATE. DISCUSSED ABOUT PLAN OF CARE.
--- NOTE | 2018-01-25 23:02 | NUR ---
PRN TYLENOL: PT REQUESTED FOR TYLENOL FOR HEAD ACHE, ALSO STATED DO NOT GIVE HER MOTHER ANY NORCO OR AMBIEN, ONLY TYLENOL TO HELP WITH SLEEPING TOO. PRN TYLENOL 650MG TAB PO ADMINISTERED TO THE PT AT THIS TIME
[2018-01-26] VITALS: BP 104/58
[2018-01-26] MEDS: ACETYLCYSTEINE 10% SOLN 400 MG/4 ML VIAL NEB SCH ×4 (00:39→23:30)
[2018-01-26] MEDS: ALBUTEROL HALF STRENGTH 1.25 MG/3 ML VIAL.NEB NEB SCH ×4 (01:15→19:31)
[2018-01-26 04:00] VITALS: BP 131/62
[2018-01-26] MEDS: PIPERACILLIN /TAZOBACTAM 2.25 G in IV D5W 50 ML IV SCH ×4 (05:38→23:28)
[2018-01-26] MEDS: BLOOD SUGAR DIAGNOSTIC 1 EACH STRIP VI SCH ×4 (05:56→21:03)
[2018-01-26] MEDS: INSULIN REGULAR, HUMAN 100 UNIT/ML 3 ML VIAL SQ PRN ×3 (05:57→16:47)
--- NOTE | 2018-01-26 05:57 | NUR ---
bs 187: bs 187, 3units of insulin given per sliding scale, pt tolerating po intake.
[2018-01-26 06:10] LABS: BASOPHILS % (AUTO) 0.2 % (0.0-2.0); HEMATOCRIT 27 % (33-45); HEMOGLOBIN 8.9 g/dL (11.5-14.8); LYMPHOCYTES # (AUTO) 0.5 /CMM (0.8-4.8); LYMPHOCYTES % (AUTO) 11.4 % (20.0-44.0); MEAN CORPUSCULAR HGB CONC 33 g/dl (31.0-36.0); MEAN CORPUSCULAR VOLUME 86 fL (82-100); MONOCYTES # (AUTO) 0.1 /CMM (0.1-1.30); MONOCYTES % (AUTO) 2.1 % (2.0-12.0); NEUTROPHILS # (AUTO) 3.9 /CMM (1.8-8.9); NEUTROPHILS % (AUTO) 86.3 % (43.0-81.0); PLATELET COUNT (AUTO) 192 /CMM (150-450); RDW COEFFICIENT OF VARIATION 17.5 (11.5-15.0); RED BLOOD CELL COUNT(AUTO) 3.13 MIL/uL (4.0-5.2); WHITE BLOOD COUNT (AUTO) 4.5 K/uL (4.3-11.0)
[2018-01-26 06:30] LABS: CALCIUM, SERUM 9.2 mg/dL (8.5-10.1); CARBON DIOXIDE 32 mmol/L (21-32); CHLORIDE 104 mmol/L (98-107); GLUCOSE 204 mg/dL (74-106); MAGNESIUM 2.2 mg/dL (1.8-2.4); PHOSPHORUS 3.6 mg/dL (2.5-4.9); POTASSIUM 5.8 mmol/L (3.5-5.1); SODIUM SERUM 140 mmol/L (136-145); UREA NITROGEN, BLOOD 23 mg/dL (7-18)
--- NOTE | 2018-01-26 06:47 | NUR ---
RN CLOSING NOTES: PT IN BED, AWAKE, REMAINS ON 3L O2 VIA NC, RESPIRATION EVENA ND UNLABORED, DAUGHTER AT BED SIDE, PT DENIES ANY PAIN OR DISCOMFORT AT THIS TIME. IV ACCESS REMAINS PATENT AND FLUSHING WELL, ON HL. VS REMAINS STABLE, NEEDS ATTENDED. SAFETY PRECAUTIONS FOR FALL REMAINS ENGAGED, CALL LIGHT IN REACH, WILL ENDORSE TO DAY RN FOR ROSALINA.
--- NOTE | 2018-01-26 07:10 | NUR ---
ms rn initial notes Received patient in bed, awake, head of bed elevated, no SOB or distress noted. On 02 @3lpm via NC and tolerated well. Alert and oriented x 3 verbally responsive and able to make needs known, Irish speaking. IV intact and patent HL only. No complaint of pain or discomfort noted. Call light with in patient reach, will continue to monitor accordingly.
[2018-01-26 08:00] VITALS: BP 109/58
[2018-01-26] MEDS: EZETIMIBE 10 MG TABLET PO SCH (08:31)
[2018-01-26] MEDS: predniSONE 20 MG TABLET PO SCH (08:31)
[2018-01-26] MEDS: MONTELUKAST SODIUM (10MG) 10 MG TABLET PO SCH (08:31)
[2018-01-26] MEDS: CARVEDILOL 6.25 MG TABLET PO SCH ×2 (08:32→16:49)
[2018-01-26] MEDS: APIXABAN 2.5 MG TABLET PO SCH ×2 (09:02→16:48)
[2018-01-26] MEDS: FUROSEMIDE 40 MG/4 ML VIAL IV SCH ×3 (10:49→18:30)
[2018-01-26] MEDS: SOD FERRIC GLUC 125 MG in IV NS 0.9% 100 ML IV SCH (13:46)
[2018-01-26 16:00] VITALS: BP 132/63
--- NOTE | 2018-01-26 18:37 | NUR ---
ms rn notes last dose of Lasix 3/3 held due to bp 100/43. will continue to monitor
--- NOTE | 2018-01-26 19:18 | NUR ---
ms rn closing notes All needs provided, attended, and anticipated. Patient is in stable condition. endorsed to next shift RN to continue care. Call light with in patient reach.
[2018-01-26 20:00] VITALS: BP 122/54
[2018-01-26] MEDS: *INSULIN REGULAR(HUMULIN R)HUM 100 UNIT/ML VIAL SQ PRN (21:02)
[2018-01-27] MEDS: ALBUTEROL HALF STRENGTH 1.25 MG/3 ML VIAL.NEB NEB SCH ×3 (01:21→13:30)
[2018-01-27 04:00] VITALS: BP 120/54
[2018-01-27] MEDS: PIPERACILLIN /TAZOBACTAM 2.25 G in IV D5W 50 ML IV SCH ×2 (06:19→11:42)
[2018-01-27 06:59] LABS: BASOPHILS % (AUTO) 0.3 % (0.0-2.0); EOSINOPHILS % (AUTO) 0.1 % (0.0-6.0); HEMATOCRIT 27 % (33-45); LYMPHOCYTES # (AUTO) 1.4 /CMM (0.8-4.8); LYMPHOCYTES % (AUTO) 25.9 % (20.0-44.0); MEAN CORPUSCULAR HGB CONC 34 g/dl (31.0-36.0); MEAN CORPUSCULAR VOLUME 86 fL (82-100); MONOCYTES # (AUTO) 0.4 /CMM (0.1-1.30); MONOCYTES % (AUTO) 7.2 % (2.0-12.0); NEUTROPHILS # (AUTO) 3.6 /CMM (1.8-8.9); NEUTROPHILS % (AUTO) 66.5 % (43.0-81.0); PLATELET COUNT (AUTO) 191 /CMM (150-450); RDW COEFFICIENT OF VARIATION 17.3 (11.5-15.0); RED BLOOD CELL COUNT(AUTO) 3.11 MIL/uL (4.0-5.2); WHITE BLOOD COUNT (AUTO) 5.4 K/uL (4.3-11.0)
--- NOTE | 2018-01-27 07:10 | NUR ---
MS RN OPENING NOTES RECEIVED PT IN BED ALERT AND VERBALLY RESPONSIVE, PT'S DAUGHTER AT BEDSIDE, NO C/O PAIN , ON 3LPM O2 VIA NC, TOLERATING WELL, WITH LFA SALINE LOCK, INTACT AND PATENT, BED IN LOW AND LOCKED POSITION, CALL LIGHT WITHIN REACH, SAFETY PRECAUTION OBSERVED, WILL CONTINUE TO MONITOR.
[2018-01-27 07:13] LABS: ALANINE AMINOTRANSFERASE 58 U/L (12-78); ALBUMIN 3.2 g/dL (3.4-5.0); ALKALINE PHOSPHATASE 35 U/L (46-116); ASPARTATE AMINOTRANSFERASE 46 U/L (15-37); BILIRUBIN,TOTAL 0.3 mg/dL (0.2-1.0); CALCIUM, SERUM 9.3 mg/dL (8.5-10.1); CARBON DIOXIDE 37 mmol/L (21-32); CHLORIDE 104 mmol/L (98-107); GLUCOSE 98 mg/dL (74-106); MAGNESIUM 2.2 mg/dL (1.8-2.4); PHOSPHORUS 2.9 mg/dL (2.5-4.9); POTASSIUM 4.2 mmol/L (3.5-5.1); SODIUM SERUM 143 mmol/L (136-145); TOTAL PROTEIN, SERUM 7.3 g/dL (6.4-8.2); UREA NITROGEN, BLOOD 29 mg/dL (7-18)
[2018-01-27 08:00] VITALS: BP 125/56
[2018-01-27] MEDS: BLOOD SUGAR DIAGNOSTIC 1 EACH STRIP VI SCH ×2 (08:01→11:38)
[2018-01-27] MEDS: ACETYLCYSTEINE 10% SOLN 400 MG/4 ML VIAL NEB SCH ×2 (08:04→14:09)
[2018-01-27] MEDS: predniSONE 20 MG TABLET PO SCH (09:02)
[2018-01-27] MEDS: EZETIMIBE 10 MG TABLET PO SCH (09:02)
[2018-01-27] MEDS: MONTELUKAST SODIUM (10MG) 10 MG TABLET PO SCH (09:02)
[2018-01-27 09:03] VITALS: BP 125/56
[2018-01-27] MEDS: CARVEDILOL 6.25 MG TABLET PO SCH (09:03)
[2018-01-27] MEDS: APIXABAN 2.5 MG TABLET PO SCH (09:15)
[2018-01-27] MEDS: *INSULIN REGULAR(HUMULIN R)HUM 100 UNIT/ML VIAL SQ PRN (11:44)
[2018-01-27 13:24] LABS: OCCULT BLOOD STOOL NEGATIVE (NEGATIVE)
--- NOTE | 2018-01-27 14:09 | NUR ---
RT HHN TX NOT GIVEN. MULTIPLE FAMILY MEMBERS IN ROOM AWAITING DISCHARGE PAPERWORK TO BE PROCESSED. PATIENT DID NOT WANT TX
--- NOTE | 2018-01-27 15:30 | NUR ---
MS AGRONOMY INSTRUCTOR NOTES PT DISCHARGE IN STABLE CONDITION, NO ACUTE DISTRESS NOTED, NO C/O PAIN, DISCHARGE INSTRUCTIONS GIVEN/EXPLAINED TO PT AND DAUGHTER, BOTH VERBALIZED UNDERSTANDING, VS WERE TAKEN FOLLOWS: BP: 121/55; CT: 85, RR: 20; TEMP.:97.8; O2 SAT OF 96% RA; D/C IV, INTACT AND NO SIGNS OF INFECTION/BLEEDING, PRESSURE DRESSING APPLIED. D/C TO HOME VIA W/C ACCOMPANIED BY FAMILY MEMBER
== END 2018-01-27 15:35 | disposition home or self-care (01) | DRG 291 ==
LOC: ER 11:57 → TELE-TD 14:01 → TELE1 01-22 09:59 → MEDSG1 01-23 12:02
PROVIDERS: ADMIT Internal Medicine; ATTEND Internal Medicine
DX: I13.0 Hypertensive heart and chronic kidney disease with heart failure and stage 1 through stage 4 chronic kidney disease, or unspecified chronic kidney disease (principal); J96.01 Acute respiratory failure with hypoxia; N17.0 Acute kidney failure with tubular necrosis; J18.9 Pneumonia, unspecified organism; E11.22 Type 2 diabetes mellitus with diabetic chronic kidney disease; E44.1 Mild protein-calorie malnutrition; I48.91 Unspecified atrial fibrillation; I48.92 Unspecified atrial flutter; D63.8 Anemia in other chronic diseases classified elsewhere; I50.23 Acute on chronic systolic (congestive) heart failure; I11.0 Hypertensive heart disease with heart failure; J45.909 Unspecified asthma, uncomplicated; M19.90 Unspecified osteoarthritis, unspecified site; H26.9 Unspecified cataract; Z88.1 Allergy status to other antibiotic agents; Z79.4 Long term (current) use of insulin; Z79.84 Long term (current) use of oral hypoglycemic drugs; Z79.899 Other long term (current) drug therapy; Z98.890 Other specified postprocedural states; Z98.61 Coronary angioplasty status; N18.9 Chronic kidney disease, unspecified; I25.10 Atherosclerotic heart disease of native coronary artery without angina pectoris; K21.9 Gastro-esophageal reflux disease without esophagitis; I08.0 Rheumatic disorders of both mitral and aortic valves; E78.5 Hyperlipidemia, unspecified; E61.1 Iron deficiency; J20.9 Acute bronchitis, unspecified
CPT/HCPCS: 36415; 36600; 71045-TC; 71250-TC; 80048-TC; 80053-TC; 80061-TC; 80076-TC; 81000-TC; 82272-TC; 82306; 82533; 82728-TC; 82962-TC; 83540-TC; 83735-TC; 83880; 84100-TC; 84439-TC; 84443-TC; 84484-TC; 85025-TC; 85730-TC; 87081-TC; 93307-TC; 93970-TC; 94799-TC; A4606; J1160; J1815; J1940; J2405; J2543; J2916; J2930; J3490; J7030; J7050; J7060; Z7610

== ENCOUNTER 2019-02-20 02:17 | Inpatient (IN) | payer MEDICARE, OTHER ==
[~2019-02-20] VITALS: Ht 157.5 cm; Wt 55.3 kg
[~2019-02-20 02:17] MED LIST changes: -ALEN70TA45 PO; +APIX2.5T PO; +ASPI-1152 PO; +CARV6.252 PO; -CELE200C PO; +DILT60CA2 PO; -ESOM40CA PO; -FENO145T PO; +FERR325T23 PO; +INSU100I24 SQ; -INSU100V7 SQ; -MAGN400T6 PO; -METO-356 PO; -ROSU5TAB PO; -SITA1TAB2 PO; +TEMA15CA5 PO; -TICA90TA PO
--- NOTE | 2019-02-20 02:27 | NUR ---
TO BED 1 BIB FAMILY MEMBERS C/O SOB WITH WEEZING, RHONCHI HEARD BILATERALLY ON AUSCULTATION, CP X4 DAYS. PT AAOX4, PLACE PT ON CARDIAC MONITORING, CONTINUOUS POX NOTED O2 SAT 92% ON RA, PLACE PT ON 02@2L/NC O2 SAT INCREASED TO 97%. PENDING ER MD SONG.
--- NOTE | 2019-02-20 02:34 | NUR ---
ER MD AT BEDSIDE TO EVAL PT WITH ORDERS RECEIVED.
[2019-02-20] MEDS ORDERED: IPRATROPIUM NEB FS 0.5 MG/2.5 ML AMPUL.NEB ONE (02:44)
[2019-02-20] MEDS ORDERED: ALBUTEROL FS 2.5 MG/3 ML VIAL.NEB ONE (02:44)
[2019-02-20 03:00] LABS: BASOPHILS # (AUTO) 0.1 /CMM (0.0-0.2); EOSINOPHILS % (AUTO) 2.5 % (0.0-6.0); HEMATOCRIT 38 % (33-45); HEMOGLOBIN 13.1 g/dL (11.5-14.8); LYMPHOCYTES # (AUTO) 1.1 /CMM (0.8-4.8); LYMPHOCYTES % (AUTO) 14.3 % (20.0-44.0); MEAN CORPUSCULAR HGB CONC 34 g/dl (31.0-36.0); MEAN CORPUSCULAR VOLUME 85 fL (82-100); MONOCYTES # (AUTO) 0.7 /CMM (0.1-1.30); MONOCYTES % (AUTO) 8.9 % (2.0-12.0); NEUTROPHILS # (AUTO) 5.7 /CMM (1.8-8.9); NEUTROPHILS % (AUTO) 73.3 % (43.0-81.0); PLATELET COUNT (AUTO) 196 /CMM (150-450); RED BLOOD CELL COUNT(AUTO) 4.54 MIL/uL (4.0-5.2); WHITE BLOOD COUNT (AUTO) 7.8 K/uL (4.3-11.0)
[2019-02-20] MEDS ORDERED: IPRATROPIUM NEB FS 0.5 MG/2.5 ML AMPUL.NEB NEB ONE (03:00)
[2019-02-20] MEDS ORDERED: methylPREDNISolone SOD SUCC 125 MG/2ML VIAL IV ONE (03:00)
[2019-02-20] MEDS ORDERED: ALBUTEROL FS 2.5 MG/3 ML VIAL.NEB CONTNEB ONE (03:00)
[2019-02-20 03:08] LABS: CARBON DIOXIDE 31 mmol/L (21-32); CHLORIDE 101 mmol/L (98-107); CREATININE 0.9 mg/dL (0.6-1.3); GLUCOSE 159 mg/dL (74-106); SODIUM SERUM 139 mmol/L (136-145); UREA NITROGEN, BLOOD 17 mg/dL (7-18)
[2019-02-20] MEDS ORDERED: methylPREDNISolone SOD SUCC 125 MG/2ML VIAL ONE (03:19)
[2019-02-20] MEDS ORDERED: Magnesium 1GM/D5W 100ML PREMIX 200 ML IV ONE (03:20)
[2019-02-20 03:21] LABS: ALANINE AMINOTRANSFERASE 21 U/L (12-78); ALBUMIN 3.7 g/dL (3.4-5.0); ALKALINE PHOSPHATASE 69 U/L (46-116); ASPARTATE AMINOTRANSFERASE 18 U/L (15-37); B-TYPE NATRIURETIC PEPTIDE 1393 PG/ML (0-125); BILIRUBIN,DIRECT 0.1 mg/dL (0.0-0.2); BILIRUBIN,TOTAL 0.4 mg/dL (0.2-1.0); TOTAL PROTEIN, SERUM 8.3 g/dL (6.4-8.2)
--- NOTE | 2019-02-20 03:56 | NUR ---
PT AMBULATROY TO THE BATHROOM WITH STEADY GAIT NOTED. PT FAMILY MEMBERS REMAINS AT BEDSIDE. WILL CALL FOR REPORT.
[2019-02-20] MEDS: Magnesium 1GM/D5W 100ML PREMIX 100 ML IV SCH ×2 (03:57→05:37)
[2019-02-20] MEDS ORDERED: FUROSEMIDE 20 MG/2 ML VIAL IV ONE (04:00)
[2019-02-20] MEDS ORDERED: ZOLPIDEM TARTRATE 5 MG TABLET PO PRN (04:00)
[2019-02-20] MEDS ORDERED: Z GUARD REMEDY 2 OZ OINT TP PRN (04:00)
[2019-02-20] MEDS ORDERED: HYDROCODONE/APAP 5/325MG 1 EACH TABLET PO PRN (04:00)
[2019-02-20] MEDS ORDERED: DEXTROSE 50%-WATER 50 ML DISP.SYRIN IV PRN (04:00)
[2019-02-20] MEDS ORDERED: MAGNESIUM HYDROXIDE 30 ML UDC PO PRN (04:00)
[2019-02-20] MEDS ORDERED: ACETAMINOPHEN 325 MG TABLET PO PRN (04:00)
[2019-02-20] MEDS ORDERED: ALBUTEROL FS 2.5 MG/0.5 ML VIAL.NEB NEB PRN (04:00)
[2019-02-20] MEDS ORDERED: ONDANSETRON HCL/PF 4 MG/2 ML VIAL IVP PRN (04:00)
[2019-02-20] MEDS ORDERED: IPRATROPIUM NEB FS 0.5 MG/2.5 ML AMPUL.NEB NEB PRN (04:00)
--- NOTE | 2019-02-20 04:10 | NUR ---
ER SPOKE TO JUAN CARLOS LOTT REGARDING PT ADMISSION.
[2019-02-20] MEDS ORDERED: ALBUTEROL FS 2.5 MG/0.5 ML VIAL.NEB NEB ONE (05:00)
[2019-02-20 05:01] LABS: BASOPHILS % (AUTO) 0.6 % (0.0-2.0); EOSINOPHILS % (AUTO) 1.4 % (0.0-6.0); HEMATOCRIT 38 % (33-45); HEMOGLOBIN 12.8 g/dL (11.5-14.8); LYMPHOCYTES # (AUTO) 0.8 /CMM (0.8-4.8); LYMPHOCYTES % (AUTO) 11.2 % (20.0-44.0); MEAN CORPUSCULAR HGB CONC 34 g/dl (31.0-36.0); MEAN CORPUSCULAR VOLUME 86 fL (82-100); MONOCYTES # (AUTO) 0.2 /CMM (0.1-1.30); MONOCYTES % (AUTO) 3.1 % (2.0-12.0); NEUTROPHILS # (AUTO) 5.8 /CMM (1.8-8.9); NEUTROPHILS % (AUTO) 83.7 % (43.0-81.0); PLATELET COUNT (AUTO) 187 /CMM (150-450); RED BLOOD CELL COUNT(AUTO) 4.36 MIL/uL (4.0-5.2); WHITE BLOOD COUNT (AUTO) 6.9 K/uL (4.3-11.0)
--- NOTE | 2019-02-20 05:01 | NUR ---
REPORT CALLED TO TELE 1 TRISHA PULLIAM. WILL TRASNPORT PT VIA ACLS PROTOCOL.
[2019-02-20 05:23] LABS: CALCIUM, SERUM 8.8 mg/dL (8.5-10.1); CARBON DIOXIDE 32 mmol/L (21-32); CHLORIDE 100 mmol/L (98-107); CREATININE 0.9 mg/dL (0.6-1.3); GLUCOSE 225 mg/dL (74-106); MAGNESIUM 2.9 mg/dL (1.8-2.4); PHOSPHORUS 3.7 mg/dL (2.5-4.9); POTASSIUM 4.1 mmol/L (3.5-5.1); SODIUM SERUM 138 mmol/L (136-145); UREA NITROGEN, BLOOD 17 mg/dL (7-18)
[2019-02-20 05:33] LABS: CHOLESTEROL 117 mg/dL (<200); HDL CHOLESTEROL 32 mg/dL (40-60); LDL 60 mg/dL (0-99); TRIGLYCERIDES 165 mg/dL (30-150)
[2019-02-20 05:37] VITALS: BP 174/56
--- NOTE | 2019-02-20 05:58 | NUR ---
TELE-TD/RISK CONTROL MANAGER JUAN CARLOS ELI PAGED REGARDING ELEVATED BP 174/56. AWAITING CALL BACK.
[2019-02-20] MEDS ORDERED: hydrALAZINE HCL IV 20 MG VIAL IV PRN (07:00)
--- NOTE | 2019-02-20 07:31 | NUR ---
RN AGUSTIN/TELE OPENING NOTES RECEIVED BEDSIDE REPORT. FAMILY AT BEDSIDE PATIENT A/O X4 IRISH SPEAKING NO SIGNS OR SYMPTOMS OF RESPIRATORY DISTRESS SATURATING WELL ON 2 LTRS NASAL CANNULA OR ACUTE PAIN NOTED. AMBULATORY IN ROOM TO BATHROOM. IV SALINE LOCK # 18 GAUGE TO RIGHT HAND. LABS WNL WILL FOLLOW UP WITH HOSPITALIST. SAFETY PRECAUTIONS IN PLACE BED IN LOW POSITION CALL LIGHT WITHIN REACH WILL CONT TO MONITOR APPROPRIATELY
[2019-02-20] MEDS ORDERED: WARF5TAB77 PO (07:51)
[2019-02-20] MEDS ORDERED: ROSU5TAB PO (07:51)
[2019-02-20] MEDS ORDERED: CLOP75TA15 PO (07:51)
[2019-02-20] MEDS ORDERED: SOTA80TA PO (07:51)
[2019-02-20] MEDS ORDERED: WARF7.5T23 PO (07:51)
[2019-02-20] MEDS ORDERED: PANT40TA2 PO (07:51)
[2019-02-20] MEDS: BLOOD SUGAR DIAGNOSTIC 1 EACH STRIP IN SCH ×4 (07:58→21:44)
[2019-02-20 08:00] VITALS: BP 159/53
[2019-02-20] MEDS: INSULIN REGULAR, HUMAN 100 UNIT/ML 3 ML VIAL SQ PRN ×4 (08:01→21:57)
[2019-02-20] MEDS: methylPREDNISolone SOD SUCC 40 MG/ML VIAL IV SCH ×2 (10:11→17:37)
--- NOTE | 2019-02-20 14:00 | NUR ---
ORDER FOR CT ANGIO 3D IMAGE CONSENT OBTAINED AND SIGNED FOR PROCEDURE AND CONTRAST. WILL INSERT #18 GAUGE IV PER RADIOLOGY
--- NOTE | 2019-02-20 14:31 | NUR ---
INSPECTOR AIR CARRIER NOTES IV #18 GAUGE PLACED IN LAC
[2019-02-20] MEDS ORDERED: CT SWABBABLE VALVE TRANS SET 1 EA INFUS.SET MC ONE (15:45)
[2019-02-20] MEDS ORDERED: IV NS 0.9% 250 ML IV ONE ×2 (15:45→16:20)
[2019-02-20] MEDS ORDERED: IOHEXOL-350 100 ML VIAL IV ONE (15:45)
[2019-02-20 16:00] VITALS: BP 141/47
[2019-02-20] MEDS: GUAIFENESIN LA 600 MG TABLET.SA PO SCH ×2 (16:01→21:44)
[2019-02-20] MEDS ORDERED: METOPROLOL TARTRATE INJ 5 MG/5 ML AMPUL ONE ×2 (16:19→16:24)
[2019-02-20] MEDS ORDERED: IV NS 0.9% 500 ML IV ONE (16:30)
[2019-02-20] MEDS ORDERED: METOPROLOL TARTRATE INJ 5 MG/5 ML AMPUL IVP ONE (16:30)
[2019-02-20] MEDS ORDERED: NITROGLYCERIN 0.4 MG/TAB BOTTLE SL ONE (16:30)
--- NOTE | 2019-02-20 16:47 | NUR ---
received a call from per leonie rn patient bp above 180,and post lopressor still high,will clarify w/ .
--- NOTE | 2019-02-20 16:49 | NUR ---
tc alanis paged awaits response.patient in ct for cta precedure.
--- NOTE | 2019-02-20 16:58 | NUR ---
spoke with tc alanis and order to place patient on telemetry floor post cta and continue to monitor.
--- NOTE | 2019-02-20 16:58 | NUR ---
multicultural services librarian report given to Chitra rn for continuity of care after cta total of 50mg iv metoprolol given no distress noted during scan pt sbp elevated 170s notified Chitra to contact md regarding findings for further orders after scan sbp 153/71 hr 84 pt is aox4 no distress noted pt moved back to room 110-1 stable conditions.
[2019-02-20] MEDS: SOTALOL HCL 80 MG TABLET PO SCH (17:37)
[2019-02-20] MEDS: FERROUS SULFATE (325 MG) 325 MG/TAB TABLET PO SCH (17:37)
[2019-02-20] MEDS ORDERED: ALBUTEROL FS 2.5 MG/0.5 ML VIAL.NEB NEB SCH (18:00)
[2019-02-20] MEDS ORDERED: IPRATROPIUM NEB FS 0.5 MG/2.5 ML AMPUL.NEB NEB SCH (18:00)
--- NOTE | 2019-02-20 18:28 | NUR ---
INTERN BRAND NOTES FAMILY AT BEDSIDE PATIENT A/O X4 ESTONIAN SPEAKING SPEAKS/UNDERSTANDS SOME WELSH NO SIGNS OR SYMPTOMS OF RESPIRATORY DISTRESS SATURATING WELL ON 2 LTRS NASAL CANNULA NO ACUTE PAIN NOTED. AMBULATORY IN ROOM TO BATHROOM. IV SALINE LOCK # 18 GAUGE TO RIGHT HAND AND LAC #[address] ANGIO 3 D COMPLETE .WALKING ON UNIT WITH FAMILY TOLERATING WELL. APPETITE GOOD NO N/V/D SAFETY PRECAUTIONS IN PLACE BED IN LOW POSITION CALL LIGHT WITHIN REACH WILL ENDORSE TO NOC
--- NOTE | 2019-02-20 19:14 | NUR ---
ENDORSED REPORT TO NOC
--- NOTE | 2019-02-20 19:15 | NUR ---
PROOF COINS INSPECTOR NOTE PATIENT REPORT GIVEN BEDSIDE. PATIENT RECEIVED IN BED A/O X 4 WITH 2 FAMILY MEMBERS AT BEDSIDE. PATIENT DENIES SOB/CHEST PAIN. PATIENT CURRENTLY ON 2 L NC. NO S/S OF RESP DISTRESS NOTED AT THIS TIME. DISCUSSED WITH PATIENT , PATIENT GOALS FOR THE NIGHT. PATIENT HR SR IN THE 80'S ON THE MONITOR. SAFETY PRECAUTIONS IN PLACE. CALL LIGHT WITHIN HAND, RN WILL CONTINUE TO MONITOR AND RENDER CARE ORDERED.
[2019-02-20 20:00] VITALS: BP 133/48
[2019-02-20 20:19] VITALS: BP 133/48
[2019-02-21] VITALS: BP 135/51
[2019-02-21] MEDS: methylPREDNISolone SOD SUCC 40 MG/ML VIAL IV SCH (02:17)
[2019-02-21 04:00] VITALS: BP 141/55
--- NOTE | 2019-02-21 07:27 | NUR ---
KNOBBER OPENING NOTES RECEIVED BEDSIDE REPORT. PATIENT A/O X4 AMBULATORY IN HALLS NO SIGNS OR SYMPTOMS OF RESPIRATORY DISTRESS NOTED ON 2 LTRS NASAL CANNULA IN ROOM NO 02 WHILE WALKING IN HALLS. NO COMPLAINT OF ACUTE PAIN. IV # 18 GAUGE TO RIGHT HAND AND # 18 GAUGE TO LAC SALINE LOCK PATENT AND FLUSHING WELL. FAMILY MEMBER AT BEDSIDE. SAFETY AND FALL PRECAUTIONS IN PLACE BED IN LOW POSITION CALL LIGHT WITHIN REACH. WILL CONT TO MONITOR LABS ACCORDINGLY.
[2019-02-21] MEDS ORDERED: PANTOPRAZOLE 40 MG TABLET.DR PO SCH (07:30)
[2019-02-21] MEDS: BLOOD SUGAR DIAGNOSTIC 1 EACH STRIP IN SCH ×2 (07:46→12:00)
[2019-02-21] MEDS: INSULIN REGULAR, HUMAN 100 UNIT/ML 3 ML VIAL SQ PRN (07:46)
[2019-02-21 08:00] VITALS: BP 150/44
[2019-02-21] MEDS: GUAIFENESIN LA 600 MG TABLET.SA PO SCH (08:21)
[2019-02-21] MEDS: FERROUS SULFATE (325 MG) 325 MG/TAB TABLET PO SCH (08:21)
[2019-02-21 08:47] LABS: ABG BASE EXCESS 2.9 mmol/L; ABG OXYGEN SATURATION 90.2 % (92.0-98.5); ABG PCO2 51.2 mmHg (35.0-45.0); ABG PH 7.372 (7.350-7.450); ABG PO2 61.6 mmHg (75.0-100.0); AaDO2 26.8 mmHg; COHb 0.3 % (0.5-1.5); MetHb 0.3 % (0.0-1.5); O2Hb 89.7 % (94.0-97.0); SITE, ABG Right Brachial; VENT MODE, BG ROOM AIR
[2019-02-21 09:00] VITALS: BP 150/44
[2019-02-21] MEDS ORDERED: MONTELUKAST SODIUM (10MG) 10 MG TABLET PO SCH (09:00)
[2019-02-21] MEDS ORDERED: CLOPIDOGREL BISULFATE 75 MG TABLET PO SCH (09:00)
[2019-02-21] MEDS: SOTALOL HCL 80 MG TABLET PO SCH (09:00)
[2019-02-21] MEDS ORDERED: ATORVASTATIN 10 MG TABLET PO SCH (09:00)
[2019-02-21] MEDS ORDERED: FUROSEMIDE 40 MG TABLET PO SCH (09:00)
--- NOTE | 2019-02-21 09:34 | NUR ---
RN NOTE PATIENT DOWNGRADED TO MED SURG BY BENEFITS SALES CONSULTANT
[2019-02-21] MEDS ORDERED: PRED20TA PO (10:17)
[2019-02-21] MEDS ORDERED: FLUT1DIS3 INH (10:17)
[2019-02-21] MEDS ORDERED: PRED5TAB48 PO (10:17)
--- NOTE | 2019-02-21 10:30 | NUR ---
RN TMS NOTES PATIENT ORDERS FOR DISCHARGE. PHARMACY CALLED TO VERIFY COUMADIN D/T ELEVATED INR OF 3.77. MD MADE AWARE. PATIENT REFUSED LABS. EDUCATED PATIENT ON IMPORTANCE SAFETY AND NEED FOR BLOOD DRAW. PATIENT AGREED LABS DRAWN WAITING FOR RESULTS. ALL DISCHARGE AND EDUCATION COMPLETED. PATIENT REFUSED TO HAVE PHOTOS TAKEN.
--- NOTE | 2019-02-21 12:37 | NUR ---
HYDROCHLORIC AREA SUPERVISOR NOTE PATIENT RESULTS RECEIVED FROM LAB . INFORMED KARTIK GOLDEN PT 32.1 INR 3.23 . OK TO DISCHARGE PATIENT NO NEW ORDERS. ALL BELONGINGS SIGNS AND ACCOUNTED FOR VITAL SIGNS TAKEN . EDUCATION ON COUMADIN AND DIET GIVEN TO FAMILY. RX FAXED TO PHARMACY PER FAMILY REQUEST. FAMILY UNDERSTANDS. [employer]ITC[employer] UTILIZED AND DISCHARGE PAPERS SIGNED
[2019-02-21] MEDS ORDERED: WARFARIN SODIUM 7.5 MG TABLET PO SCH (17:00)
[2019-02-22] MEDS ORDERED: WARFARIN SODIUM 5 MG TABLET PO SCH ×2 (14:00→17:00)
== END 2019-02-21 12:30 | disposition home or self-care (01) | DRG 291 ==
LOC: ER 02:21 → TELE-TD 04:58 → MEDSG1 09:50 → TELE1 16:56 → MEDSG1 02-21 09:30
PROVIDERS: ADMIT Nurse Practitioner Acute Care; ATTEND Nurse Practitioner Acute Care
DX: I11.0 Hypertensive heart disease with heart failure (principal); J96.21 Acute and chronic respiratory failure with hypoxia; J45.901 Unspecified asthma with (acute) exacerbation; D68.9 Coagulation defect, unspecified; I50.33 Acute on chronic diastolic (congestive) heart failure; M19.90 Unspecified osteoarthritis, unspecified site; Z88.1 Allergy status to other antibiotic agents; Z79.51 Long term (current) use of inhaled steroids; Z79.82 Long term (current) use of aspirin; Z79.899 Other long term (current) drug therapy; I25.10 Atherosclerotic heart disease of native coronary artery without angina pectoris; E11.9 Type 2 diabetes mellitus without complications; E78.5 Hyperlipidemia, unspecified; Z99.81 Dependence on supplemental oxygen; Z95.5 Presence of coronary angioplasty implant and graft; Z95.2 Presence of prosthetic heart valve; Z90.49 Acquired absence of other specified parts of digestive tract; Z79.01 Long term (current) use of anticoagulants; Z80.9 Family history of malignant neoplasm, unspecified; Z79.02 Long term (current) use of antithrombotics/antiplatelets; I48.2 Chronic atrial fibrillation; K21.9 Gastro-esophageal reflux disease without esophagitis; B34.9 Viral infection, unspecified
CPT/HCPCS: 36415; 36600; 70220-TC; 71045-TC; 75574; 80048-TC; 80061-TC; 80076-TC; 82803-TC; 82962-TC; 83605-TC; 83735-TC; 83880; 84100-TC; 84484-TC; 85025-TC; 85610-TC; 85730-TC; 87040-TC; 87081-TC; 93307-TC; G0378; J1815; J1940; J2920; J2930; J3475; J3490; J7050; Q9967

== ENCOUNTER 2019-03-09 16:27 | Inpatient (IN) | payer MEDICARE, OTHER ==
[~2019-03-09] VITALS: Ht 154.9 cm; Wt 52.2 kg
[~2019-03-09 16:27] MED LIST changes: -AMLO10TA4 PO; -APIX2.5T PO; -ASPI-1152 PO; -CARV6.252 PO; +CLOP75TA15 PO; -DILT60CA2 PO; -EZET10TA14 PO; +FLUT1DIS3 INH; -GLIM4TAB2 PO; +PANT40TA2 PO; -POTA8TAB3 PO; +PRED20TA PO; +PRED5TAB48 PO; +ROSU5TAB PO; +SOTA80TA PO; -TEMA15CA5 PO; +WARF5TAB77 PO; +WARF7.5T23 PO
--- NOTE | 2019-03-09 16:58 | NUR ---
83 YEAR OLD FEMALE BIB FAMILY C/O SON AND CHEST TIGHNESS. ALERT AND ORIENTED X3 IN HER POINT HOPE [place] LANGUAGE. BREATHING SLIGHTLY SHALLOW WITH O2 AT 3LPM VIA NC. SKIN WARM TO TOUCH AND INTACT. AWAITNG TO BE SEEN AUREA IVY.
[2019-03-09] MEDS ORDERED: IV NS 0.9% 1,000 ML IV ONE (17:05)
[2019-03-09] MEDS ORDERED: ONDANSETRON HCL/PF 4 MG/2 ML VIAL ONE (17:24)
[2019-03-09] MEDS ORDERED: MORPHINE SULFATE INJ 2 MG/ML DISP.SYRIN ONE (17:25)
[2019-03-09] MEDS ORDERED: ALBUTEROL FS 2.5 MG/3 ML VIAL.NEB NEB ONE (17:30)
[2019-03-09] MEDS ORDERED: MORPHINE SULFATE INJ 2 MG/ML DISP.SYRIN IV ONE (17:30)
[2019-03-09] MEDS ORDERED: IPRATROPIUM NEB FS 0.5 MG/2.5 ML AMPUL.NEB NEB ONE (17:30)
[2019-03-09] MEDS ORDERED: ONDANSETRON HCL/PF 4 MG/2 ML VIAL IVP ONE (17:30)
[2019-03-09 17:34] LABS: BASOPHILS % (AUTO) 0.1 % (0.0-2.0); EOSINOPHILS % (AUTO) 0.1 % (0.0-6.0); HEMATOCRIT 38 % (33-45); HEMOGLOBIN 12.5 g/dL (11.5-14.8); LYMPHOCYTES # (AUTO) 0.7 /CMM (0.8-4.8); LYMPHOCYTES % (AUTO) 4.2 % (20.0-44.0); MEAN CORPUSCULAR HGB CONC 33 g/dl (31.0-36.0); MEAN CORPUSCULAR VOLUME 88 fL (82-100); MONOCYTES # (AUTO) 0.8 /CMM (0.1-1.30); NEUTROPHILS # (AUTO) 14.5 /CMM (1.8-8.9); NEUTROPHILS % (AUTO) 90.6 % (43.0-81.0); PLATELET COUNT (AUTO) 240 /CMM (150-450); RED BLOOD CELL COUNT(AUTO) 4.34 MIL/uL (4.0-5.2)
[2019-03-09 17:42] LABS: CALCIUM, SERUM 8.9 mg/dL (8.5-10.1); CARBON DIOXIDE 35 mmol/L (21-32); CHLORIDE 100 mmol/L (98-107); GLUCOSE 176 mg/dL (74-106); POTASSIUM 4.5 mmol/L (3.5-5.1); SODIUM SERUM 138 mmol/L (136-145); UREA NITROGEN, BLOOD 24 mg/dL (7-18)
--- NOTE | 2019-03-09 17:45 | NUR ---
CALLED RT FOR BREATHING TREATMENT
[2019-03-09] MEDS ORDERED: IPRATROPIUM NEB FS 0.5 MG/2.5 ML AMPUL.NEB ONE (17:51)
[2019-03-09] MEDS ORDERED: ALBUTEROL FS 2.5 MG/3 ML VIAL.NEB ONE (17:51)
[2019-03-09 17:56] LABS: ALANINE AMINOTRANSFERASE 19 U/L (12-78); ALBUMIN 2.4 g/dL (3.4-5.0); ALKALINE PHOSPHATASE 93 U/L (46-116); ASPARTATE AMINOTRANSFERASE 17 U/L (15-37); B-TYPE NATRIURETIC PEPTIDE 2979 PG/ML (0-125); BILIRUBIN,DIRECT 0.1 mg/dL (0.0-0.2); BILIRUBIN,TOTAL 0.4 mg/dL (0.2-1.0); TOTAL PROTEIN, SERUM 7.6 g/dL (6.4-8.2)
--- NOTE | 2019-03-09 17:58 | NUR ---
Note hussain in EDM - 03/09/19 at 1759 by GEORGE 83 YEAR OLD FEMALE BIB FAMILY C/O SON AND CHEST TIGHNESS. ALERT AND ORIENTED X3 IN HER JENA LANGUAGE. BREATHING SLIGHTLY SHALLOW WITH O2 AT 3LPM VIA NC. SKIN WARM TO TOUCH AND INTACT. AWAITNG TO BE SEEN AUREA IVY.
--- NOTE | 2019-03-09 18:01 | NUR ---
RT AT BEDSIDE FOR BREATHING TX ORDERS
[2019-03-09] MEDS ORDERED: WARF5TAB77 PO (18:23)
[2019-03-09] MEDS ORDERED: AZIT250T13 PO (18:23)
[2019-03-09] MEDS ORDERED: DILT180C PO (18:23)
--- NOTE | 2019-03-09 18:51 | NUR ---
TELE 311-2
--- NOTE | 2019-03-09 19:00 | NUR ---
CHIN ALVAREZD, KARTIK GOLDEN NP DOCTOR OF OSTEOPATHY
[2019-03-09] MEDS ORDERED: FUROSEMIDE 40 MG/4 ML VIAL IV SCH (19:30)
[2019-03-09] MEDS ORDERED: FUROSEMIDE 40 MG/4 ML VIAL ONE (19:35)
--- NOTE | 2019-03-09 19:40 | NUR ---
REPORT GIVEN TO THUY TO CONTINUE TO CONTINUITY OF CARE
--- NOTE | 2019-03-09 20:30 | NUR ---
TELE/RN NOTES RECEIVED PT. FROM ER [facility]. PT. IS AWAKE, ALERT AND ORIENTED X3. BREATHING EVEN AND UNLABORED ON 2LPM O2 VIA NC. NO SOB, RESPIRATORY DISTRESS OR COMPLAINTS OF PAIN NOTED AT THIS TIME. ORIENTED PT. TO ROOM. PLACED EXTERNAL GEOMETRICIAN ON PT. CURRENT RHYTHM = SINUS RHYTHM HR 64. PT. WITH LEFT AC 20 GAUGE IV SALINE LOCK PRESENT, PATENT AND INTACT. PT. WITH DAUGHTERS PRESENT AT BEDSIDE. BED LOCKED AND IN LOWEST POSITION, SIDE RAILS UP X3, CALL LIGHT WITHIN REACH, WILL CONTINUE TO MONITOR.
--- NOTE | 2019-03-09 20:45 | NUR ---
PT TRANSPORTED TO UNIT WITH RN AND EMT AT BEDSIDE W/ ACLS PROTOCOL. NAD NOTED DURING TRANSPORT.
[2019-03-09] MEDS ORDERED: ONDANSETRON HCL/PF 4 MG/2 ML VIAL IVP PRN (21:00)
[2019-03-09] MEDS ORDERED: HYDROCODONE/APAP 5/325MG 1 EACH TABLET PO PRN (21:00)
[2019-03-09] MEDS ORDERED: MAG HYDROX/AL HYDROX/SIMETH 30 ML UDC PO PRN (21:00)
[2019-03-09] MEDS ORDERED: VANCOMYCIN 1 GM in IV D5W 250 ML IV ONE (21:00)
[2019-03-09] MEDS ORDERED: MAGNESIUM HYDROXIDE 30 ML UDC PO PRN (21:00)
[2019-03-09] MEDS ORDERED: ALBUTEROL FS 2.5 MG/0.5 ML VIAL.NEB NEB PRN (21:00)
[2019-03-09] MEDS ORDERED: ACETAMINOPHEN 325 MG TABLET PO PRN (21:00)
[2019-03-09] MEDS ORDERED: Z GUARD REMEDY 2 OZ OINT TP PRN (21:00)
[2019-03-09] MEDS ORDERED: FEE PK DOSING 1 MIN EA MC ONE (21:01)
[2019-03-09 21:31] VITALS: BP 118/73
[2019-03-09] MEDS ORDERED: VANCOMYCIN 1 GM VIAL ONE (22:04)
[2019-03-09] MEDS ORDERED: PIPERACILLIN /TAZOBACTAM 3.375 G VIAL IV ONE (23:55)
[2019-03-10] VITALS: BP 121/53
--- NOTE | 2019-03-10 00:50 | NUR ---
TELE/RN NOTES CALLED AND NOTIFIED EPIC MENTAL HEALTH AIDES TEACHER BRI GOLDEN PT. WITH CRITICAL LAB VALUE INR: 6.91. NO S/S OF BLEEDING NOTED. PT. TAKES PLAVIX AND COUMADIN AT HOME. PER BRI GOLDEN NEW ORDER: HOLD TOMORROWS DOSE OF COUMADIN. WILL CONTINUE TO MONITOR.
[2019-03-10] MEDS: PIPERACILLIN /TAZOBACTAM 3.375 G in IV D5W 50 ML IV SCH ×3 (00:59→11:58)
[2019-03-10] MEDS ORDERED: PIPERACILLIN /TAZOBACTAM 3.375 G VIAL IV ONE (05:36)
--- NOTE | 2019-03-10 06:42 | NUR ---
TELE/RN NOTES PT. IS LYING IN BED RESTING. BREATHING EVEN AND UNLABORED ON 2LPM O2 VIA NC. NO SOB, RESPIRATORY DISTRESS OR COMPLAINTS OF PAIN NOTED AT THIS TIME AND THROUGHOUT SHIFT. PT. WITH EXTERNAL ACTIMIZE ARCHITECT PRESENT AND INTACT. PT. CURRENT RHYTHM = SINUS RHYTHM HR 75. PT. WITH LEFT AC 20 GAUGE IV SALINE LOCK PRESENT, PATENT AND INTACT. ALL PT. NEEDS MET. PT. DAUGHTER PRESENT AT BEDSIDE. BED LOCKED AND IN LOWEST POSITION, SIDE RAILS UP X3, CALL LIGHT WITHIN REACH, WILL ENDORSE TO DAYSHIFT NURSE FOR CONTINUITY OF CARE.
--- NOTE | 2019-03-10 07:10 | NUR ---
RN INITIAL NOTE PATIENT IN BED ASLEEP, EASILY AROUSABLE. DAUGHTER AT BEDSIDE AWAKE. ON 2L NC. ON TELE MONITOR SR AT 65. PER NOC SHIFT, PATIENT IS CONTINENT AND HAS BRP. HAS A LEFT AC #20 SALINE LOCKED. INR IS CRITICALLY HIGH, PER GOLDEN HOLD TODAY'S DOSE OF COUMADIN. PENDING CARDIO CONSULT. NO COMPLAINS OF ANY PAIN NOR SOB AT THIS TIME. WILL CONTINUE TO MONITOR
[2019-03-10 07:16] LABS: BASOPHILS % (AUTO) 0.2 % (0.0-2.0); EOSINOPHILS % (AUTO) 0.2 % (0.0-6.0); HEMATOCRIT 34 % (33-45); LYMPHOCYTES # (AUTO) 0.6 /CMM (0.8-4.8); LYMPHOCYTES % (AUTO) 4.7 % (20.0-44.0); MEAN CORPUSCULAR HGB CONC 33 g/dl (31.0-36.0); MEAN CORPUSCULAR VOLUME 88 fL (82-100); MONOCYTES # (AUTO) 0.8 /CMM (0.1-1.30); NEUTROPHILS # (AUTO) 11.4 /CMM (1.8-8.9); NEUTROPHILS % (AUTO) 88.9 % (43.0-81.0); PLATELET COUNT (AUTO) 197 /CMM (150-450); RED BLOOD CELL COUNT(AUTO) 3.82 MIL/uL (4.0-5.2); WHITE BLOOD COUNT (AUTO) 12.8 K/uL (4.3-11.0)
[2019-03-10 07:19] LABS: CALCIUM, SERUM 8.6 mg/dL (8.5-10.1); CARBON DIOXIDE 32 mmol/L (21-32); CHLORIDE 102 mmol/L (98-107); CREATININE 0.9 mg/dL (0.6-1.3); GLUCOSE 125 mg/dL (74-106); MAGNESIUM 2.1 mg/dL (1.8-2.4); PHOSPHORUS 3.3 mg/dL (2.5-4.9); SODIUM SERUM 139 mmol/L (136-145); UREA NITROGEN, BLOOD 19 mg/dL (7-18)
[2019-03-10 07:25] LABS: CHOLESTEROL 75 mg/dL (<200); HDL CHOLESTEROL 15 mg/dL (40-60); LDL 39 mg/dL (0-99); THYROID STIMULATING HORMONE 1.107 uIU/mL (0.358-3.74); TRIGLYCERIDES 134 mg/dL (30-150)
[2019-03-10 08:00] VITALS: BP 133/55
[2019-03-10] MEDS: PANTOPRAZOLE 40 MG TABLET.DR PO SCH (08:00)
[2019-03-10] MEDS: DILTIAZEM HCL CD 180 MG PO SCH (08:17)
[2019-03-10] MEDS: MONTELUKAST SODIUM (10MG) 10 MG TABLET PO SCH (08:17)
[2019-03-10] MEDS: FUROSEMIDE 40 MG TABLET PO SCH (08:17)
[2019-03-10] MEDS: ATORVASTATIN 10 MG TABLET PO SCH (08:17)
[2019-03-10] MEDS: CLOPIDOGREL BISULFATE 75 MG TABLET PO SCH (08:18)
[2019-03-10] MEDS: FERROUS SULFATE (325 MG) 325 MG/TAB TABLET PO SCH ×2 (08:18→17:51)
[2019-03-10] MEDS: SOTALOL HCL 80 MG TABLET PO SCH ×2 (08:18→17:51)
[2019-03-10] MEDS ORDERED: WARFARIN SODIUM 5 MG TABLET PO SCH (09:00)
[2019-03-10] MEDS: IPRATROPIUM NEB FS 0.5 MG/2.5 ML AMPUL.NEB NEB SCH ×3 (10:30→19:56)
--- NOTE | 2019-03-10 10:51 | NUR ---
RT Pt asleep at this time, no SOB or respiratory distress noted.
[2019-03-10] MEDS ORDERED: DEXTROSE 50%-WATER 50 ML DISP.SYRIN IV PRN (11:00)
[2019-03-10] MEDS: INSULIN REGULAR, HUMAN 100 UNIT/ML 3 ML VIAL SQ PRN ×3 (12:24→21:30)
[2019-03-10] MEDS: BLOOD SUGAR DIAGNOSTIC 1 EACH STRIP IN SCH ×3 (12:29→21:28)
[2019-03-10] MEDS: ALBUTEROL FS 2.5 MG/0.5 ML VIAL.NEB NEB SCH ×2 (12:50→19:56)
--- NOTE | 2019-03-10 13:55 | NUR ---
RN NOTES FAMILY AT BEDSIDE. INSERTED NEW IV SITE PER PHARMACY REQUEST, RIGHT FA #[phone]. SALINE LOCKED
[2019-03-10] MEDS ORDERED: VANCOMYCIN 0.75 GM in IV D5W 250 ML IV SCH (15:00)
[2019-03-10 15:26] LABS: APPEARANCE,URINE CLEAR (CLEAR); BILIRUBIN,URINE NEGATIVE (NEGATIVE); BLOOD, URINE 1+ Ery/uL (NEGATIVE); COLOR,URINE YELLOW (YELLOW); KETONES,URINE NEGATIVE (NEGATIVE); LEUKOCYTE ESTERASE ,URINE TRACE (NEGATIVE); NITRITE, URINE NEGATIVE (NEGATIVE); PROTEIN,URINE NEGATIVE (NEGATIVE); UGLUCOSE NEGATIVE (NEGATIVE); UROBILINOGEN,URINE 0.2 EU/dL (0.2)
[2019-03-10 15:43] LABS: BACTERIA,URINE Rare /HPF (None Seen); WBC,URINE 0-2 /HPF (0-3)
[2019-03-10 15:44] LABS: SQUAMOUS EPITHELIAL CELL,UR Moderate /HPF (None Seen); URIC ACID CRYSTALS,URINE Rare /HPF (None Seen)
[2019-03-10 16:00] VITALS: BP 112/60
[2019-03-10] MEDS: PIPERACILLIN /TAZOBACTAM 3.375 G in IV D5W 100 ML IV SCH (18:16)
--- NOTE | 2019-03-10 19:23 | NUR ---
RN CLOSING NOTES PATIENT IN BED, AWAKE AND ALERT. DAUGHTERS AT BEDSIDE. ZOSYN RUNNING AT THIS TIME FOR 3 MORE HOURS. PATIENT AMBULATED AT THE HALLWAY WITH ASSIST. URINALYSIS PROFILE SENT TO LAB. PATIENT TOOK ALL HER MEDS. NO COMPLAINS OF ANY PAIN OR SOB. HAD A FEVER THIS MORNING. LATEST TEMP IS 98.0F. BED ON LOWEST POSITION. CALL LIGHT WITHIN REACH. ENDORSED TO NOC SHIFT FOR ROSALINA
--- NOTE | 2019-03-10 19:25 | NUR ---
MS RN OPENING NOTES Received patient sitting up in bed, family at bedside. Patient is alert, oriented x 3. Breathing even and unlabored. Not in any distress. On O2 at 3LPM via nasal cannula. IV antibiotic Zosyn infusing at 25mL/hr. Safety measures in place; call light within reach, bed in low, locked position. Will continue to monitor accordingly
[2019-03-10 20:00] VITALS: BP 111/46
[2019-03-10 20:29] VITALS: BP 111/46
--- NOTE | 2019-03-10 21:30 | NUR ---
RN NOTES BSL-132mg/dL. 2units of insulin given per sliding scale
[2019-03-11] MEDS: PIPERACILLIN /TAZOBACTAM 3.375 G in IV D5W 100 ML IV SCH ×3 (01:20→17:15)
[2019-03-11] MEDS: ALBUTEROL FS 2.5 MG/0.5 ML VIAL.NEB NEB SCH ×6 (01:30→23:11)
[2019-03-11] MEDS: IPRATROPIUM NEB FS 0.5 MG/2.5 ML AMPUL.NEB NEB SCH ×6 (01:30→23:11)
--- NOTE | 2019-03-11 03:30 | NUR ---
RN NOTES Patient c/o nose bleed. Noted small amount of blood in nose- pressure applied and kept upright. Cleaned. Humidified O2 in place. Will continue to monitor
[2019-03-11] MEDS: BLOOD SUGAR DIAGNOSTIC 1 EACH STRIP IN SCH ×4 (06:34→21:52)
[2019-03-11] MEDS: INSULIN REGULAR, HUMAN 100 UNIT/ML 3 ML VIAL SQ PRN ×4 (06:35→22:02)
--- NOTE | 2019-03-11 07:20 | NUR ---
MS RN CLOSING NOTES Patient resting in bed, daughter at bedside. RT currently at bedside. Safety measures in place; call light within reach, bed in low, locked position. Encouraged to call for assistance. Endorsed ROSALINA to AM RN
[2019-03-11] MEDS: PANTOPRAZOLE 40 MG TABLET.DR PO SCH (07:29)
--- NOTE | 2019-03-11 07:30 | NUR ---
MS/RN - Assessment Patient awake, A/O x 3-4, no complaints overnight, denies chest pain at this time, no apparent distress noted, afebrile, currently on breathing treatment. Saline lock on the LAC and RFA are both patent, intact, with no signs of infiltration. Morning labs with pending result. Patient is independent with bed mobility, ambulatory with assist. Patient and daughter at bedside educated on plan of care. Fall and aspiration precautions maintained. Will continue with current medical management.
[2019-03-11 08:00] VITALS: BP 130/46
[2019-03-11] MEDS: DILTIAZEM HCL CD 180 MG PO SCH (08:26)
[2019-03-11] MEDS: MONTELUKAST SODIUM (10MG) 10 MG TABLET PO SCH ×2 (08:26→21:53)
[2019-03-11] MEDS: FERROUS SULFATE (325 MG) 325 MG/TAB TABLET PO SCH ×2 (08:26→16:39)
[2019-03-11] MEDS: CLOPIDOGREL BISULFATE 75 MG TABLET PO SCH (08:26)
[2019-03-11] MEDS: FUROSEMIDE 40 MG TABLET PO SCH (08:27)
[2019-03-11] MEDS: SOTALOL HCL 80 MG TABLET PO SCH ×2 (08:27→16:42)
[2019-03-11] MEDS: ATORVASTATIN 10 MG TABLET PO SCH ×2 (08:27→21:53)
--- NOTE | 2019-03-11 08:30 | NUR ---
MS/RN - S/b Dr. Schmitz Seen and examined by Dr. Schmitz.
[2019-03-11 08:38] LABS: CALCIUM, SERUM 8.7 mg/dL (8.5-10.1); CARBON DIOXIDE 33 mmol/L (21-32); CHLORIDE 99 mmol/L (98-107); GLUCOSE 187 mg/dL (74-106); POTASSIUM 3.7 mmol/L (3.5-5.1); SODIUM SERUM 137 mmol/L (136-145); UREA NITROGEN, BLOOD 17 mg/dL (7-18)
[2019-03-11] MEDS: VANCOMYCIN 1 GM in IV D5W 250 ML IV SCH (09:23)
--- NOTE | 2019-03-11 10:30 | NUR ---
MS/RN - S/b Dr. Hairston Seen and examined by Dr. Hairston with new orders.
--- NOTE | 2019-03-11 10:44 | NUR ---
MS/RN - S/b Dr. Walker Seen and examined by Dr. Walker with no new orders.
[2019-03-11 11:04] LABS: BASOPHILS % (AUTO) 0.2 % (0.0-2.0); EOSINOPHILS % (AUTO) 0.2 % (0.0-6.0); HEMATOCRIT 32 % (33-45); HEMOGLOBIN 10.6 g/dL (11.5-14.8); LYMPHOCYTES # (AUTO) 0.5 /CMM (0.8-4.8); MEAN CORPUSCULAR HGB CONC 33 g/dl (31.0-36.0); MEAN CORPUSCULAR VOLUME 88 fL (82-100); MONOCYTES # (AUTO) 0.5 /CMM (0.1-1.30); MONOCYTES % (AUTO) 4.8 % (2.0-12.0); NEUTROPHILS # (AUTO) 9.3 /CMM (1.8-8.9); NEUTROPHILS % (AUTO) 89.8 % (43.0-81.0); PLATELET COUNT (AUTO) 215 /CMM (150-450); RED BLOOD CELL COUNT(AUTO) 3.63 MIL/uL (4.0-5.2); WHITE BLOOD COUNT (AUTO) 10.4 K/uL (4.3-11.0)
--- NOTE | 2019-03-11 11:10 | NUR ---
MS/RN - ABG result Relayed ABG results to Dr. Hairston, keep pt on oxygen at 2lpm via NC.
[2019-03-11 11:14] LABS: ABG BASE EXCESS 9.8 mmol/L; ABG OXYGEN SATURATION 87.2 % (92.0-98.5); ABG PCO2 57.2 mmHg (35.0-45.0); ABG PH 7.418 (7.350-7.450); ABG PO2 50.7 mmHg (75.0-100.0); AaDO2 81.4 mmHg; COHb 1.2 % (0.5-1.5); MetHb 0.8 % (0.0-1.5); O2Hb 85.5 % (94.0-97.0); SITE, ABG Right Radial; VENT MODE, BG 2LPM NASAL CANNULA
[2019-03-11] MEDS: methylPREDNISolone SOD SUCC 40 MG/ML VIAL IV SCH ×2 (11:52→16:39)
--- NOTE | 2019-03-11 13:30 | NUR ---
MS/RN - Notes Patient states feeling better, denies pain, on oxygen at 2lpm via NC, family at bedside.
[2019-03-11] MEDS: CYANOCOBALAMIN 1,000 MCG/ML VIAL SQ SCH (13:40)
[2019-03-11 16:00] VITALS: BP 113/53
--- NOTE | 2019-03-11 18:10 | NUR ---
MS/RN - End of shift summary Patient's breathing improved, Solumedrol given as ordered, on oral Lasix daily, diuresing well. No fall/injury this shift. Family at bedside. Will endorse to night nurse accordingly.
--- NOTE | 2019-03-11 19:30 | NUR ---
RN NOTES RECEIVED PT. AWAKE ON BED A/OX4, UKRAINIAN SPEAKING, DAUGHTER AT BEDSIDE, DENIES PAIN, NO SOB, CALL LIGHT WITHIN REACH, SIDERAILSUPX2, CONTINUE TO MONITOR
[2019-03-11 20:00] VITALS: BP 94/46
--- NOTE | 2019-03-11 22:10 | NUR ---
RN NOTES PT. BLOOD SUGAR -415, SPOKE TO DR. HENDERSON TO GIVE 10 UNITS PER PROTOCOL AND GIVE ANOTHER 10UNITS TOTAL OF 20 UNITS ORDER NOTED AND CARRIED OUT
--- NOTE | 2019-03-12 00:56 | NUR ---
RN NOTES NEW IV LINE INSERTED ON LEFT FOREARM GAUGE 22
[2019-03-12] MEDS: PIPERACILLIN /TAZOBACTAM 3.375 G in IV D5W 100 ML IV SCH ×3 (01:47→17:25)
[2019-03-12] MEDS: VANCOMYCIN 1 GM in IV D5W 250 ML IV SCH (03:26)
[2019-03-12] MEDS: ALBUTEROL FS 2.5 MG/0.5 ML VIAL.NEB NEB SCH ×6 (03:49→23:24)
[2019-03-12] MEDS: IPRATROPIUM NEB FS 0.5 MG/2.5 ML AMPUL.NEB NEB SCH ×6 (03:49→23:24)
[2019-03-12] MEDS: BLOOD SUGAR DIAGNOSTIC 1 EACH STRIP IN SCH ×4 (06:33→21:40)
[2019-03-12] MEDS: INSULIN REGULAR, HUMAN 100 UNIT/ML 3 ML VIAL SQ PRN ×4 (06:34→21:47)
--- NOTE | 2019-03-12 06:46 | NUR ---
RN NOTES AWAKE, DAUGHTER AT BEDSIDE, MORNING CARE RENDERED, DENIES PAIN, NO SOB, CALL LIGHT WITHIN REACH, SIDERAILSUPX2, PT. NEEDS ATTENDED
[2019-03-12 07:24] LABS: CALCIUM, SERUM 8.7 mg/dL (8.5-10.1); CARBON DIOXIDE 36 mmol/L (21-32); CHLORIDE 95 mmol/L (98-107); CREATININE 1.1 mg/dL (0.6-1.3); GLUCOSE 291 mg/dL (74-106); POTASSIUM 3.7 mmol/L (3.5-5.1); SODIUM SERUM 135 mmol/L (136-145); UREA NITROGEN, BLOOD 24 mg/dL (7-18)
[2019-03-12] MEDS: PANTOPRAZOLE 40 MG TABLET.DR PO SCH (07:35)
--- NOTE | 2019-03-12 07:36 | NUR ---
MS/RN - Assessment Patient awake, A/O x 4, no complaints overnight, states breathing better, denies chest pain, no apparent distress noted, afebrile, currently on oxygen at 2lpm via NC. Saline lock on the LFA and RFA are both patent, intact, with no signs of infiltration. Morning labs reviewed with no critical results. Patient is independent with bed mobility, ambulatory with assist. Patient and daughter at bedside educated on plan of care. Fall and aspiration precautions maintained. Will continue with current medical management.
[2019-03-12 08:00] VITALS: BP 113/87
[2019-03-12] MEDS: methylPREDNISolone SOD SUCC 40 MG/ML VIAL IV SCH ×3 (08:25→16:39)
[2019-03-12] MEDS: FERROUS SULFATE (325 MG) 325 MG/TAB TABLET PO SCH ×2 (08:25→16:39)
[2019-03-12] MEDS: CLOPIDOGREL BISULFATE 75 MG TABLET PO SCH (08:25)
[2019-03-12] MEDS: CYANOCOBALAMIN 1,000 MCG/ML VIAL SQ SCH (08:25)
[2019-03-12] MEDS: DILTIAZEM HCL CD 180 MG PO SCH (08:25)
[2019-03-12] MEDS: FUROSEMIDE 40 MG TABLET PO SCH (08:25)
[2019-03-12] MEDS: SOTALOL HCL 80 MG TABLET PO SCH ×2 (08:26→16:39)
--- NOTE | 2019-03-12 08:45 | NUR ---
MS/RN - S/b Dr. Hairston Seen and examined by Dr. Hairston with no new order at this time.
--- NOTE | 2019-03-12 09:00 | NUR ---
MS/RN - S/b Dr. Schmitz Seen and examined by Dr. Schmitz with no new order.
--- NOTE | 2019-03-12 09:50 | NUR ---
MS/RN - S/b Dr. Walker Seen and examined by Dr. Walker with no new orders.
--- NOTE | 2019-03-12 11:30 | NUR ---
MS/RN - Notes Patient resting comfortably, stable on room air, denies chest pain. Family at bedside.
--- NOTE | 2019-03-12 13:30 | NUR ---
MS/RN - Notes Patient is ambulating with walker in the hallway, on room air, denies shortness of breath, no c/o pain.
--- NOTE | 2019-03-12 15:30 | NUR ---
MS/RN - Notes Patient is ambulating in the hallway, no other complaints, still on room air, SpO2 93%.
[2019-03-12 16:00] VITALS: BP 122/79
--- NOTE | 2019-03-12 17:15 | NUR ---
MS/RN - Critical result/Md Order Fingerstick blood glucose result was 440 mg/dL, patient is currently on Solu-medrol TID, regular insulin 10 units SQ was given per sliding scale. Dr. Hairston made aware of critical result with order to administer another dose of regular insulin 10 units SQ once.
[2019-03-12] MEDS ORDERED: INSULIN REGULAR, HUMAN 100 UNIT/ML 10 ML VIAL SQ ONE (17:30)
--- NOTE | 2019-03-12 18:43 | NUR ---
MS/RN - End of shift summary Patient's condition continues to improve, INR trending down, remain afebrile, no c/o pain, not in any form of distress, stable on room air, SpO2 94-95%. Per Md, will discharge home tomorrow. Family at bedside aware. Will endorse to night nurse accordingly.
[2019-03-12 19:30] VITALS: BP 117/40
[2019-03-12 20:29] VITALS: BP 117/35
[2019-03-12] MEDS ORDERED: VANCOMYCIN 1 GM in IV NS 0.9% 250 ML IV SCH (21:00)
[2019-03-12] MEDS: ATORVASTATIN 10 MG TABLET PO SCH (21:40)
[2019-03-12] MEDS: MONTELUKAST SODIUM (10MG) 10 MG TABLET PO SCH (21:40)
[2019-03-13] MEDS: PIPERACILLIN /TAZOBACTAM 3.375 G in IV D5W 100 ML IV SCH ×2 (02:19→10:22)
[2019-03-13] MEDS: IPRATROPIUM NEB FS 0.5 MG/2.5 ML AMPUL.NEB NEB SCH ×3 (03:30→11:31)
[2019-03-13] MEDS: ALBUTEROL FS 2.5 MG/0.5 ML VIAL.NEB NEB SCH ×3 (03:30→11:31)
[2019-03-13] MEDS: BLOOD SUGAR DIAGNOSTIC 1 EACH STRIP IN SCH ×2 (06:31→12:20)
[2019-03-13] MEDS: INSULIN REGULAR, HUMAN 100 UNIT/ML 3 ML VIAL SQ PRN ×2 (06:32→12:21)
[2019-03-13 06:37] LABS: CALCIUM, SERUM 8.9 mg/dL (8.5-10.1); CARBON DIOXIDE 34 mmol/L (21-32); CHLORIDE 97 mmol/L (98-107); CREATININE 1.2 mg/dL (0.6-1.3); GLUCOSE 283 mg/dL (74-106); POTASSIUM 3.9 mmol/L (3.5-5.1); SODIUM SERUM 136 mmol/L (136-145); UREA NITROGEN, BLOOD 31 mg/dL (7-18)
[2019-03-13 08:00] VITALS: BP_SYST 142; BP_SYST 147; BP_DIAS 52; BP_DIAS 85
--- NOTE | 2019-03-13 08:00 | NUR ---
MS RN NOTES PATIENT IN BED RESTING ALERT, ORIENTED X4. DAUGHTER AT BEDSIDE. PATIENT DENIES ANY PAIN. STATES SHE FEELS MUCH BETTER TODAY AND IS READY TO BE DISCHARGED. PATIENTS PERIPHERAL IV INTACT PATENT. BED IN LOW LOCKED POSITION, CALL LIGHT WITHIN REACH. WILL CONTINUE TO MONITOR.
[2019-03-13] MEDS: FERROUS SULFATE (325 MG) 325 MG/TAB TABLET PO SCH (09:06)
[2019-03-13] MEDS: CLOPIDOGREL BISULFATE 75 MG TABLET PO SCH (09:06)
[2019-03-13] MEDS: methylPREDNISolone SOD SUCC 40 MG/ML VIAL IV SCH ×2 (09:07→13:37)
[2019-03-13] MEDS: DILTIAZEM HCL CD 180 MG PO SCH (09:07)
[2019-03-13] MEDS: FUROSEMIDE 40 MG TABLET PO SCH (09:07)
[2019-03-13 09:08] VITALS: BP 147/60
[2019-03-13] MEDS: SOTALOL HCL 80 MG TABLET PO SCH (09:08)
[2019-03-13] MEDS: CYANOCOBALAMIN 1,000 MCG/ML VIAL SQ SCH (09:08)
[2019-03-13] MEDS: PANTOPRAZOLE 40 MG TABLET.DR PO SCH (09:11)
--- NOTE | 2019-03-13 12:20 | NUR ---
MS RN NOTES PATIENTS BLOOD SUGAR CHECKED AND NOTED OVER 400 RECHECKED, NOTED 420 PATIENT STATES SHE ALREADY HAD SOME LUNCH WHICH INCLUDED SOME SWEETS THAT HER DAUGHTER BROUGHT FROM HOME. EDUCATED PATIENT ON DIABETIC DIET. ADMINISTERED INSULIN PER SLIDING SCALE. DR. LOW MADE AWARE. WILL CONTINUE TO MONITOR.
--- NOTE | 2019-03-13 12:35 | NUR ---
MS RN NOTES PATIENT REFUSED BLOOD SUGAR CHECK TO RECHECK AFTER INSULIN ADMINISTRATION. DESPITE EXPLANATION OF RISKS AND BENEFITS.
--- NOTE | 2019-03-13 14:45 | NUR ---
MS RN NOTES PATIENT DISCHARGED HOME. DISCHARGE INSTRUCTIONS PROVIDED VERBALIZED UNDERSTANDING. PRESCRIPTION GIVEN TO PATIENT. REVIEWED ALL MEDICATIONS, VERBALIZED UNDERSTANDING. PATIENT REFUSED DISCHARGE PICTURE. DR. PENN CARD PROVIDED FOR FOLLOW UP PER DR. DUMONT. PRESCRIPTION FAXED TO PHARMACY PER PATIENTS REQUEST. PERIPHERAL IV REMOVED WITH MINIMAL BLEEDING. ID BAND REMOVED.
[2019-03-13] MEDS ORDERED: WARFARIN SODIUM 2 MG TABLET PO SCH (17:00)
== END 2019-03-13 14:45 | disposition home health service (06) | DRG 871 ==
LOC: ER 16:29 → TELE 18:58 → MED 03-10 10:08
PROVIDERS: ADMIT Nurse Practitioner Acute Care; ATTEND Nurse Practitioner Acute Care
DX: A41.9 Sepsis, unspecified organism (principal); J18.9 Pneumonia, unspecified organism; I50.33 Acute on chronic diastolic (congestive) heart failure; J96.21 Acute and chronic respiratory failure with hypoxia; E44.0 Moderate protein-calorie malnutrition; I11.0 Hypertensive heart disease with heart failure; I25.10 Atherosclerotic heart disease of native coronary artery without angina pectoris; F41.9 Anxiety disorder, unspecified; E11.9 Type 2 diabetes mellitus without complications; E78.5 Hyperlipidemia, unspecified; K21.9 Gastro-esophageal reflux disease without esophagitis; Z99.81 Dependence on supplemental oxygen; Z95.5 Presence of coronary angioplasty implant and graft; Z95.2 Presence of prosthetic heart valve; Z79.01 Long term (current) use of anticoagulants; Z88.1 Allergy status to other antibiotic agents; Z79.4 Long term (current) use of insulin; Z79.899 Other long term (current) drug therapy; Z79.02 Long term (current) use of antithrombotics/antiplatelets; Z79.51 Long term (current) use of inhaled steroids; J45.909 Unspecified asthma, uncomplicated; I48.0 Paroxysmal atrial fibrillation; I27.20 Pulmonary hypertension, unspecified
CPT/HCPCS: 31720; 36415; 36600; 71045-TC; 80048-TC; 80061-TC; 80076-TC; 80202-TC; 81000-TC; 82803-TC; 82962-TC; 83605-TC; 83735-TC; 83880; 84100-TC; 84443-TC; 84484-TC; 85025-TC; 85610-TC; 87040-TC; 87081-TC; 87086-TC; 94760-TC; 94799-TC; 97116-TC; 97530-TC; G0378; J1815; J1940; J2270; J2405; J2543; J2920; J3370; J3420; J7030; J7050; J7060